=== PATIENT | female | born 1990 | race Caucasian/White ===

== ENCOUNTER → 2025-01-02 | Outpatient (CLI) | payer OTHER, SELFPAY ==
[2025-01-02 16:28] LABS: Hematocrit 40.9 % (37-47); Hemoglobin 14.0 g/dL (12.0-15.0); Immature Granulocytes Count 0.030 X10^3/uL (0.0-0.0); Mean Corp Hgb Conc 34.2 g/dL (32-36); Mean Corpuscular Volume 84.2 fL (81-99); Mean Platelet Vol. 11.2 fl (6.2-12.0); NRBC Flagged by Analyzer 0 % (0-5); Platelet Count 328 K/mm3 (150-450); RBC Distribution Width CV 12.4 % (11.6-14.6); RBC Distribution Width SD 37.4 fl (35.1-43.9); Red Blood Count 4.86 M/mm3 (4.2-5.4); White Blood Count 7.4 K/mm3 (4.4-11.0)
[2025-01-02 18:01] LABS: AST(SGOT) 19 U/L (<=31); Alanine Aminotransfer ALT/SGPT 23 U/L (<=34); Albumin, Serum 4.5 g/dL (3.5-5.0); Alkaline Phosphatase 76 U/L (35-104); Anion Gap 16 (5-15); BUN 10 mg/dL (4-19); BUN/Creat Ratio 14.7 RATIO (10-20); Calcium,Total 9.8 mg/dL (7.6-11.0); Carbon Dioxide 19.6 mmol/L (21.0-32.0); Chloride 102 mmol/L (98-108); Cholesterol 166 mg/dL (<=200); Globulin 2.9 g/dL (2.2-4.2); Glucose 89 mg/dL (70-99); Low Density Lipoprotein Calc. 90 mg/dL; Potassium 3.8 mmol/L (3.3-5.1); Triglycerides 72 mg/dL; Very Low Density Lipoprotein 14 mg/dL (5-40); cholesterol:hdl ratio screen 2.71
== END | disposition home or self-care (01) ==
LOC: BIMLAB 14:37
PROVIDERS: PCP Internal Medicine; Referring Provider Internal Medicine; Visit Provider Internal Medicine
DX: Z00.00 Encounter for general adult medical examination without abnormal findings (principal); Z13.6 Encounter for screening for cardiovascular disorders; E04.1 Nontoxic single thyroid nodule
CPT/HCPCS: 36415; 80053; 80061; 84443; 85025

== ENCOUNTER → 2025-01-06 | Outpatient (CLI) | payer OTHER, SELFPAY ==
--- NOTE | 2025-01-06 10:02 | US_ITS ---
PROCEDURE: THYROID 01/06/2025 REASON FOR EXAM: THYROID NODULE TECHNIQUE: THYROID COMPARISON: None FINDINGS: Right thyroid lobe size: 4.8 cm 1.6 cm 1.6 cm Left thyroid lobe size: 4.8 cm x 1.7 cm 1.8 cm Isthmus: 0.3 cm Background parenchymal echotexture is heterogeneous Nodules: No thyroid nodule is seen. US/Thyroid IMPRESSION: Heterogeneous echotexture of both lobes of the thyroid. No focal nodule is see n. RECOMMENDATION: Based on most suspicious nodule. Nodule size = largest diameter Only evaluate nodule if =>5 mm. Growth > 20% in 2 dimensions = worsening. Follow up to 4 nodules. Recommend biopsy for no more than 2 nodules. Reading Location: [place] [id number]
--- OUTSIDE RECORDS SUMMARY | 2025-01-06 10:12 | XMS RPT_ITS | CCD ---
Author Organization [facility] Care Team Providers Care 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 Name Role Phone Hemalatha Nieves Primary Care Provider JOANNE ROBISON Primary Care Unavailable NADEEN BREWER Attending Unavailable PROVIDER, UNKNOWN Admitting Unavailable Joanne Robison MD Primary Care Provider Jose HUDDLESTON, Donita Miramontes Primary Care Provider Jose HUDDLESTON, Donita Miramontes Primary Care Provider Jose HUDDLESTON, Donita Miramontes Primary Care Provider [phone] JANNET GARCIA Attending Unavailable JOSE, DONITA Primary Care Unavailable LAURA GARCIAA Primary Care Unavailable DESIRE CHRISTY Attending Unavailable DONITA GARCIA Attending Unavailable JOSE DONITA Primary Care Unavailable Braxton Ramírez Attending Unavailable Braxton Ramírez Attending Unavailable Radu HUDDLESTON, Dr. Roberts Attending Provider Dr. Alejandra Lovelace MD Primary Care Provider [phone] Dr. Alejandra Lovelace MD Referring Provider Allergies Allergy Classification Reported Allergen(s) Allergy Type Date of Onset Reaction(s) Facility (2 sources) Penicillins; Translations: [PENICILLINS] Propensity to adverse reactions to drug 01-04-20 14 [facility] [place] ([facility] sources) Shellfish; Translations: [Shellfish Allergy] Propensity to adverse reactions to drug 08-03-19 20 Anaphylaxis, Hives, Rash [place], [place] (10 sources) Penicillins Propensity to adverse reactions to drug 01-04-20 14 Hives, Anaphylaxis [facility] Work Phone: (7 sources) Shellfish-Deriv ed Products Drug Intolerance 08-03-19 20 Anaphylaxis, Hives, Itching, Rash, Swelling [facility] (1 source) Penicillins Drug allergy (disorder) 11-07-19 [facility] Repository (1 source) No Known Latex Allergy Drug allergy (disorder) 11-07-19 [facility] Repository (1 source) Penicillins Allergy to substance 01-03-20 Anaphylaxis [facility] (1 source) Shellfish Allergy to substance 01-03-20 Anaphylaxis [facility] Medications Current Medications Medication Drug Class(es) Dates Sig (Normalized) Sig (Original) desogestrel 0.15 mg / ethinyl estradiol 0.03 mg oral tablet (3 sources) Progestin, Estrogen Start: 07-10-2015 desogestrel-ethin yl estradiol (DESOGEN) 0.15-30 MG-MCG tablet Take 1 Tablet by mouth daily. 3 Package 4 07/10/2015 Active Ethinyl Estradiol / Ferrous fumarate / Norethindrone (1 source) Estrogen Start: 09-11-2014 norethindrone-eth inyl estradiol (JUNEL FE 06/19) 1-20 MG-MCG tablet Take 1 Tab by mouth daily. 1 Package 12 09/11/2014 Active MULTIPLE VITAMINS PO (6 sources) take 1 tablet by mouth in the morning MULTIPLE VITAMINS PO Take 1 tablet by mouth in the morning. Active take 1 tablet by mouth in the mo rning MULTIPLE VITAMINS PO Take 1 tablet by mouth in the morning. 0 Active Multiple Vitamins-Minerals (MULTIVITAL ORAL) (3 sources) take 1 tablet by mouth once daily Multiple Vitamins-Minerals (MULTIVITAL ORAL) Take 1 Tab by mouth daily. Active take 1 tablet by mouth once flor y Multiple Vitamins-Minerals (MULTIVITAL ORAL) Take 1 Tab by mouth daily. 0 Active Qm-Cy-Kirp-Fa-Ca Carb-Vit K (Women's Multivitamin) 18 mg-400 mcg- 500 mg-50 mcg tablet (1 source) Start: 09-05-2024 Cz-Ry-Tgbr-Fa- Ca Carb-Vit K (Women's Multivitamin) 18 mg-400 mcg- 500 mg-50 mcg tablet Active {tbl} PO September 05, 2024 12:00am Completed/Discontinued Medications Medication Drug Class(es) Dates Sig (Normalized) Sig (Original) 1 ml dexamethasone phosphate 4 mg/ml injection (4 sources) Corticosteroid Start: 05-13-2023 End: 05-13-2023 dexAMETHasone (Decadron) injection 10 mg ethinyl estradiol 0.035 mg / norgestimate 0.25 mg oral tablet (2 sources) Progestin, Estrogen Start: 08-03-2022 End: 12-10-2022 take 1 tablet by mouth once daily Sprintec 28 0.25-35 MG-MCG tablet Take 1 tablet by mouth daily. 0 08/03/2022 12/10/2022 Discontinued (Therapy completed) Start: 07-17-2019 take 1 tablet by clif th once daily norgestimate-ethinyl estradiol (SPRINTEC 28) 0.25-35 MG-MCG per tablet Take 1 tablet by mouth daily 1 packet 3 07/17/2019 Active fluticasone propionate 0.05 mg/actuat metered dose nasal spray (3 sources) Corticosteroid Start: 05-13-2023 End: 12-01-2023 take 1 spray(s) nasal route once daily fluticasone (Flonase Allergy Relief) 50 MCG/ACT nasal spray Indications: Middle ear effusion, bilateral Administer 1 spray into each nostril daily. Shake gently. Before first use, prime pump. After use, clean tip and replace cap. 16 g 05/13/2023 12/01/2023 Discontinued (Therapy completed) Problems Active Problems Problem Classification Problem Date Documented Da te Episodic/Chronic Administrative/social admission (1 source) First encounter by subject; Translations: [Persons encountering health services in other specified circumstances] 01-02-2025 Episodic Allergic reactions (1 source) Allergy status to penicillin; Translations: [ALLERGY STATUS TO PENICILLIN] Onset: 11-08-2024 Episodic Contraceptive and procreative management (1 source) Patient encounter status; Translations: [Encounter for fertility testing] 12-01-2023 Episodic Disorders of lipid metabolism (11 sources) Hyperlipidemia; Translations: [Hyperlipidemia, unspecified] Onset: 08-15-2019 03-13-2022 Chronic Endometriosis (2 sources) Endometriosis; Translations: [ENDOMETRIOSIS OF THE POSTERIOR CUL-DE-SAC, UNSPECI] Onset: 11-08-2024 Malaise and fatigue (1 source) Fatigue; Translations: [Other fatigue] Episodic Menstrual disorders (1 source) Dysmenorrhea, unspecified; Translations: [DYSMENORRHEA, UNSPECIFIED] Onset: 09-29-2024 Chronic Other endocrine disorders (1 source) Hormone level - finding; Translations: [Endocrine disorder, unspecified] 01-02-2025 Episodic Comment on above: progesterone Other screening for suspected conditions (not mental disorders or infectious disease) (7 sources) Finding of thyroid gland; Translations: [Abnormal findings on diagnostic imaging of other specified body structures] Onset: 10-27-2019 03-13-2022 Chronic Other screening for suspected conditions (not mental disorders or infectious disease) (15 sources) Viral screening status; Translations: [Thyroid hormone tests abnormal] Onset: 10-27-2019 03-13-2022 Episodic Residual codes; unclassified (1 source) Hepatitis B screening required; Translations: [Need for hepatitis B screening test] Thyroid disorders (8 sources) Goiter; Translations: [Thyroid nodule] Onset: 10-27-2019 03-13-2022 Chronic Unclassified (5 sources) Patient encounter status; Translations: [Routine screening for STI (sexually transmitted infection)] Past or Other Problems Problem Classification Problem Date Documented Date Episodic/Chronic Other skin disorders (7 sources) Mass of neck; Translations: [Localized swelling, mass and lump, neck] Onset: 10-27-2019 03-13-2022 Episodic Other upper respiratory infections (6 sources) Sore throat symptom; Translations: [Acute pharyngitis, unspecified] Onset: 05-13-2023 05-13-2023 Episodic Otitis media and related conditions (4 sources) Finding of fluid behind tympanic membrane; Translations: [Unspecified nonsuppurative otitis media, bilateral] Onset: 05-13-2023 05-13-2023 Episodic Results Test Name Value Interpretation Reference Range Facility UROGENITAL UREA/MYCO PCRon 0 11-12-2024 MYCOPLASMA GENITALIUM Not detected Normal () [facility] Comment on above: Order Comment: Test results should be interpreted with caution. Assay was performed at client's request on a sub-optimal specimen. Result Comment: The specimen submitted for testing did not meet ARUP submission guidelines. Testing was performed on a specimen that did not meet validated specimen type requirements. Performance characteristics of this assay may be affected. Interpret results with caution. Please refer to the [facility] Test Directory for information on specimen acceptability: [email or web address] INTERPRETIVE INFORMATION: Urogenital Ureaplasma and Mycoplasma Species by PCR A negative result does not rule out the presence of PCR inhibitors in the patient specimen or test-specific nucleic acid in concentrations below the level of detection by this test. This test was developed and its performance characteristics determined by [facility]. It has not been cleared or approved by the US Food and Drug Administration. This test was performed in a CLIA certified laboratory and is intended for clinical purposes. Performed By: [facility] [address] [place] [address] Egg Setter: Amrit Fung MD, PhD CLIA Number: [id number] Performed By: #### U R MYCOPCR #### [address] [address] MYCOPLASMA HOMINIS Not detected Normal () [facility] Comment on above: Order Comment: Test results should be interpreted with caution. Assay was performed at client's request on a sub-optimal specimen. Result Comment: The specimen submitted for testing did not meet ARUP submission guidelines. Testing was performed on a specimen that did not meet validated specimen type requirements. Performance characteristics of this assay may be affected. Interpret results with caution. Please refer to the [email or web address] Test Directory for information on specimen acceptability: [email or web address] Performed By: #### U R MYCOPCR #### [facility] [address] [place] [address] UREAPLASMA PARVUM Detected Abnormal () [facility] Comment on above: Order Comment: Test results should be interpreted with caution. Assay was performed at client's request on a sub-optimal specimen. Result Comment: The specimen submitted for testing did not meet ARUP submission guidelines. Testing was performed on a specimen that did not meet validated specimen type requirements. Performance characteristics of this assay may be affected. Interpret results with caution. Please refer to the [email or web address] Test Directory for information on specimen acceptability: [email or web address] Performed By: #### U R MYCOPCR #### [facility] [address] [place] [address] UREAPLASMA UREALYTICUM Not detected Normal () [facility] Comment on above: Order Comment: Test results should be interpreted with caution. Assay was performed at client's request on a sub-optimal specimen. Result Comment: The specimen submitted for testing did not meet HIUP submission guidelines. Testing was performed on a specimen that did not meet validated specimen type requirements. Performance characteristics of this assay may be affected. Interpret results with caution. Please refer to the [facility] Test Directory for information on specimen acceptability: [email or web address] Performed By: #### U R MYCOPCR #### [facility] [address] [place], [place] [id number] UREAPLASMA/MYCOPL ASMA SOURCE endometrial Normal () [facility] Comment on above: Order Comment: Test results should be interpreted with caution. Assay was performed at client's request on a sub-optimal specimen. Performed By: #### U R MYCOPCR #### [facility] [address] [place], [place] [id number] *SALPINGOGRAM-OTHER MDwilber *SALPINGOGRAM-OTH ER Name: REGINA SANABRIA Phys: Braxton Ramírez MD : 1990 Age: 34 Sex: F Acct: [id number] Loc: [facility] Exam Date: 11/08/2024 Status: [facility] Radiology No: Unit No: [id number] PH: [phone] Diagnosis: DYSMENORRHEA EXAM: [id number] *SALPINGOGRAM-OTHER Reason For Procedure: HYSTERSALPINGOGRAM PRIMARY REPORT DICTATED AND SIGNED BY DR. RAMÍREZ IN PCI STUDY: FLUOROSCOPY Intraprocedural fluoroscopy provided to Dr. Ramírez For further details, please see procedural report in PCI. IMPRESSION: INTRAPROCEDURAL FLUOROSCOPY. ---- Reported By: CC: Technologist: MARGIE LAWSON Transcribed Date/Time: 11/09/2024 (717) Hospitality Workers: SHARMILA Printed Date/Time: 11/09/2024 (717) PAGE 1 Signed Report Normal [facility] IPPNon 11-08-[address] [id number] [place] [id number] REGINA SANABRIA DR: Braxton Ramírez MD ATT DR: Braxton Ramírez MD MR [id number] IMMEDIATE POST-OP REPORT ADMIT DATE: Immediate Post-Op Prog. Note Date of Procedure: 11/08/24 Time: Sho Surgeon(s): Jake Sorter/Assay Tech(s): JOHN Root Anesthesia: General Pre-Operative Diagnosis: Dysmenorrhea Post-operative diagnosis: endometriosis Procedure(s) Performed: Diagnostic laparoscopy, hysteroscopy, D and C, selective HSG Findings: endometriosis Specimen(s) removed or altered: endometrial curettings Estimated blood loss: Less than 20 cc Impln/grft/tiss/dev implntd: None Patient's condition: Stable Complications: none [facility] Braxton aRmírez MD Signed Electronically 11/08/24 1029 cc: SURGERY RECORD Normal [facility] MISC AEROBIC CULTUREon 11-08 MISC AEROBIC CULTURE RUN DATE: 11/10/24 Laboratory LIVE PAGE 1 RUN TIME: 1128 Specimen Inquiry RUN USER: INTERFACE [facility] Department of Laboratories [address] [place] [address] PATIENT: REGINA SANABRIA LOC: MATTI U #: [id number] HOME PHONE: AGE/SX: 34/F ROOM: RE11/08/[address] [facility] [address]: Braxton Ramírez MD : [birth year] BED: DIS: STATUS: REG [facility] LAB O/S: Specimen: [id number] Collected: 11/08/24- Status: COMP Req#: [id number] Received: 11/08/24 Source: TISSUE Sp Desc: ENDOMETRIM Subm Dr: Braxton Ramírez MD Ordered: AEROBIC CULTURE Procedure Result Verified > MISC AEROBIC CULTURE Final 11/10/24-1128 LIGHT LACTOBACILLUS SPECIES END OF REPORT Normal [facility] Comment on above: Performed By: #### C CHUCHO #### [place] [address] ORR 11-08-2024 [place] [address] [id number] REGINA SANABRIA DICT DR: Braxton Ramírez MD ATT DR: Braxton Ramírez MD MR [id number] SURGERY RECORD ADMIT DATE: DATE OF SURGERY: 11/08/2024 PREOPERATIVE DIAGNOSIS: Dysmenorrhea. POSTOPERATIVE DIAGNOSIS: Endometriosis. OPERATION/PROCEDURE: Diagnostic laparoscopy, hysteroscopy, dilatation and curettage, selective hysterosalpingogram. SURGEON: Braxton Ramírez MD. ANESTHESIA: General. STATUARY PAINTER: JOHN Purcell. FINDINGS: Endometriosis in the posterior cul-de-sac and the left pelvic sidewall coursing along the ureter as well. Normal endometrial cavity for the most part and patent fallopian tubes bilaterally. SPECIMEN: Endometrial curettings sent to pathology. ESTIMATED BLOOD LOSS: Minimal. COMPLICATIONS: None. CONDITION AT END OF OPERATION: Stable to recovery room. DETAILS OF PROCEDURE: The patient was taken to the operating room where general anesthesia was administered and found to be adequate. The patient was then prepped and draped in the normal sterile fashion with legs in the Yellofin stirrups in the dorsal lithotomy position. Weighted speculum was placed in the posterior vagina, Wilmer in the anterior vagina. The anterior lip of the cervix was grasped with a single-tooth tenaculum. Cervix was then gently dilated using Jacky dilators. Endometrial and endocervical cultures then obtained. The vagina was then douched with Betadine. A Rigoberto- Tobin catheter was then inserted to the left cornual angle. Dye was injected and seen to be coursing down the entire length of the fallopian tube with spill into the peritoneal cavity. The catheter was moved over to the right cornual angle. Once again, dye was injected and seen to be coursing down the entire length of fallopian tube with spill into the peritoneal cavity with normal pressures noted. The catheter was removed and a hysteroscope was inserted to visualize the interior of the uterus. Uterus had a normal architecture and appearance. There was no obvious pathology found anywhere. We then removed the hysteroscope and a gentle [place], [place] [address] [id number] REGINA SANABRIA DICT DR: Braxton Ramírez MD ATT DR: Braxton Ramírez MD MR [id number] SURGERY RECORD ADMIT DATE: circumferential curettage was performed yielding decent tissue. The uterus then sounded to 7.5 cm. A size 6 ANDREI manipulator was placed in the 1uterus. The balloon was inflated. Tenaculum and weighted speculum were both removed. Lynn was placed in the bladder. Gloves were changed. Attention was turned to the abdomen. A stab incision was made in the umbilicus. Using a Veress needle, the abdomen was entered. Three clicks were heard. Drop test was performed and passed. The gas was hooked up. The abdomen was insufflated to a pressure of 15 mmHg. We then entered at the umbilicus with a 5 mm Optiview trocar and a laparoscope. Intraperitoneal entry was confirmed with the camera and the gas was hooked up to the trocar. No visceral injury was noted from the Veress needle. We then placed a second suprapubic trocar, also 5 mm for additional instruments during the case. The patient was placed in steep Trendelenburg and the bowel was moved out of the pelvis. Survey of the pelvis revealed endometriosis in the posterior cul-de-sac and then several powder burn lesions on the left posterior broad ligament, left utero-ovarian ligament, and also powder burn and white flare lesions with fibrosis right along the left ureter. There was no other disease found anywhere else in the pelvis. The decision was made to bring the patient back for a robotic surgery to remove these various areas of disease at a later date. Some lactated Ringer's was left in the pelvis at the end the procedure postoperatively. At that point, the procedure was complete. The instruments were removed. The abdomen was desufflated. Trocars were removed. The trocar sites were closed with 4-0 Vicryl and Dermabond, injected with 0.25 percent Marcaine with epi. Patient was cleaned. Drapes were taken down. She was taken out of the [facility], awakened from anesthesia without difficulty, extubated, and transferred to recovery room in stable condition. REGINA SANABRIA - /FN/ak DOC#: [id number]/JOB#: [id number] [place], [place] [address] [id number] REGINA SANABRIA DICT DR: Braxton Ramírez MD ATT DR: Braxton Ramírez MD MR [id number] SURGERY RECORD ADMIT DATE: (more content not included)... Normal [facility] POC URINE PREGNANCYon 2024 Beta HCG ( test) Ql (U) Negative Normal [facility] Comment on above: Performed By: #### P OCUPREG #### POC [facility] Point of Care Testing [address] [place] [address] SURGICAL PATHOLOGYon 025 SURGICAL PATHOLOGY RUN DATE: 11/09/24 Laboratory LIVE PAGE 1 RUN TIME: 1459 Specimen Inquiry RUN USER: INTERFACE [facility] Department of Laboratories [address] [place] [id number] PATIENT: REGINA SANABRIA LOC: [facility] U #: [id number] HOME PHONE: AGE/SX: 34/F ROOM: RE11/08/[address] [facility] [address]: Braxton Ramírez MD : [birth year] BED: DIS: STATUS: REG [facility] LAB O/S: Specimen : [id number] Date Collected: 11/08/24 Surgeon : Braxton Ramírez MD Date Received : 11/08/24 Date Reported : 11/09/24 Physician : None == FINAL DIAGNOSIS ENDOMETRIUM; CURETTINGS: UNREMARKABLE SECRETORY PHASE ENDOMETRIUM, NEGATIVE FOR CHRONIC ENDOMETRITIS. ___ Mannie Moore M.D. Pathologist 11/09/24 SPECIMEN: Endometrial Curettings, Check for Chronic Endometritis PRE POST OP Dx (Clinical Dx): Dysmenorrhea O.R. PROCEDURE: Diagnostic Laparoscopy, Possible Laser for Endometriosis, Hysteroscopy with Dilatation and Curettage, Selective Hysterosalpingogram GROSS EXAMINATION: Specimen is labeled as endometrial curettings, check for chronic endometritis. Received in formalin are multiple fragments of white-moore to brown-moore tissue measuring 1.8 x 0.6 x 0.5 cm in aggregate. The specimen is entirely submitted in one cassette for microscopic examination. ML/cyrus COMMENT: Unless otherwise specified, final diagnosis is based on microscopic examination of the specimen. CONTINUED ON NEXT PAGE RUN DATE: 11/09/24 Laboratory LIVE PAGE 2 RUN TIME: 1459 Specimen Inquiry RUN USER: INTERFACE SPEC #: [id number] PATIENT: REGINA SANABRIA #[id number] (Continued) Specimen : [id number] Date Collected: 11/08/24 Surgeon : Braxton Ramírez MD Date Received : 11/08/24 Date Reported : 11/09/24 Physician : None == Signed-Out: Mannie Moore (signature on file) 11/09/24 My electronic signature is attestation that I have personally reviewed the submitted material(s) and the final report reflects that evaluation. END OF REPORT Normal [facility] Comment on above: Performed By: #### S #### [facility] [address] [address] PELVIC SONO TRANSVAGINALon 0 09-29-2024 PELVIC SONO TRANSVAGINAL Name: REGINA SANABRIA Phys: Braxton Ramírez MD : 1990 Age: 34 Sex: F Acct: [id number] Loc: [facility] Exam Date: 09/29/2024 Status: REG REF Radiology No: Unit No: [id number] PH: [phone] Diagnosis: DYSMENORRHEA EXAM: [id number] PELVIC SONO TRANSVAGINAL Reason For Procedure: DYSMENORRHEA STUDY: PELVIC SONO TRANSVAGINAL CLINICAL INDICATION: Dysmenorrhea. TECHNIQUE: Transvaginal sonography of the pelvis. COMPARISON: None. FINDINGS: The uterus measures 5.1 x 3.0 x 4.0 cm. The endometrium measures 9 mm. The right ovary measures 2.6 x 1.9 x 1.6 cm. Positive Doppler flow right ovary The left ovary measures 1.4 x 2.0 x 1.8cm. Positive Doppler flow left ovary no free fluid in cul-de-sac. No abnormal adnexal masses are seen IMPRESSION: NO ACUTE PROCESS Site: O REPORT SIGNED IN OTHER VENDOR SYSTEM 09/29/2024 Reported By: Akash Saxena MD CC: Donita Garcia Technologist: SHAYNE GUTIÉRREZ RDMS/(Sana) Transcribed Date/Time: 09/29/2024 (1513) Hospitality Workers: CLAY Printed Date/Time: 09/29/2024 (2093) PAGE 1 Signed Report Normal [facility] 36on 01-20-2024 36 LM for return call. Normal [facility] 36 ----- Message from Tato Garcia MD sent at 01/19/2024 1:15 PM EDT ----- Let pt know her partner's semen analysis was normal Next step is the HSG Normal [facility] 36on 01-03-2024 36 Name of caller: Omar ashford Contact phone number: [phone] Relationship to Patient: patient Provider: Dr. Jannet Garcia Practice: [place] Chief Complaint/Reason for Call: Patient calling to schedule her [place] Hysterosalpingogram. Patient stated that the first day of cycle was on 01/01/24. Please advise. Best time of day caller can be reached: Any Patient advised that office/PCP has 24-48 business hours to return their call: No Normal [facility] Office Visiton 12-16-2023 Follow-up visit [id number] Mart Sanabria 1990 F Date Provider Department Center 12/16/2023 [id number] GARCIA [facility] Family History Problem Relation Age of Onset Cervical cancer Sister 31 Hypertension Father Arthritis Father Other Mother Comments: hysterectomy- benign tumor Hypothyroidism Mother Hypertension Mother Breast cancer Maternal Great-Grandmother Hyperthyroidism Maternal Grandmother Cancer Maternal Grandfather Comments: Melanoma COPD Maternal Grandfather Thyroid cancer Neg Hx Family Status - Relation Status Age at Sister Alive Father Alive Mother Alive Maternal Great-Grandmother Maternal Grandmother Alive Maternal Grandfather Neg Hx Level of Service:91159 [place] PERIODIC PREVENTIVE MED EST PATIENT 18-39 YRS Reason for Visit and Comments: Annual Exam [83] - Patient here today for annual physical exam. No refills needed. Normal [facility] Progress Noteon 12-16-2023 Progress Note Chronic, unknown Check the labs Is trying to conceive Would not use a statin if high Normal [facility] Progress Note Chronic, unknown Check the labs No longer going to endo Normal [facility] Progress Note Subjective Patient ID: Regina Sanabria is a 33 y.o. female who presents for Annual Exam (Patient here today for annual physical exam. No refills needed.). Saw the [facility]. Is going to have an HSPG. Trying to conceive. Is off the pill. They did not do labs. On no medicines. BP is good. Weight is good. Chart reivewed Review of Systems Constitutional: Negative for activity change and appetite change. Weights and rower, and walking Respiratory: Negative for chest tightness and shortness of breath. Cardiovascular: Negative for chest pain and leg swelling. Gastrointestinal: Positive for constipation. Negative for abdominal pain and blood in stool. Genitourinary: Negative for difficulty urinating, menstrual problem and vaginal discharge. Less flow with menses Objective Physical Exam Vitals and nursing note reviewed. Constitutional: General: She is not in acute distress. Appearance: She is not ill-appearing or toxic-appearing. HENT: Right Ear: Tympanic membrane normal. Left Ear: Tympanic membrane normal. Nose: Nose normal. Mouth/Throat: Pharynx: No oropharyngeal exudate or posterior oropharyngeal erythema. Eyes: General: No scleral icterus. Conjunctiva/sclera: Conjunctivae normal. Pupils: Pupils are equal, round, and reactive to light. Neck: Vascular: No carotid bruit. Cardiovascular: Rate and Rhythm: Normal rate and regular rhythm. Heart sounds: Normal heart sounds. No murmur heard. Pulmonary: Effort: Pulmonary effort is normal. No respiratory distress. Breath sounds: Normal breath sounds. Abdominal: General: Bowel sounds are normal. There is no distension. Tenderness: There is no abdominal tenderness. There is no right CVA tenderness or left CVA tenderness. Musculoskeletal: Cervical back: Neck supple. Lymphadenopathy: Cervical: No cervical adenopathy. Skin: General: Skin is warm and dry. Capillary Refill: Capillary refill takes less than 2 seconds. Coloration: Skin is not jaundiced. Neurological: Mental Status: She is alert and oriented to person, place, and time. Cranial Nerves: No cranial nerve deficit. Psychiatric: Thought Content: Thought content normal. Assessment/Plan Problem List Items Addressed This Visit Abnormal TSH Chronic, unknown Check the labs No longer going to endo Relevant Orders TSH Hyperlipemia Chronic, unknown Check the labs Is trying to conceive Would not use a statin if high Other Visit Diagnoses Routine adult health maintenance - Primary Relevant Orders Lipid panel Comprehensive metabolic panel CBC Normal [facility] Office Visiton 12-01-2023 Follow-up visit [id number] Mart Sanabria 1990 F Date Provider Department Center 12/01/2023 [id number] GARCIA [facility] [place] Family History Problem Relation Age of Onset Cervical cancer Sister 31 Hypertension Father Arthritis Father Other Mother Comments: hysterectomy- benign tumor Hypothyroidism Mother Hypertension Mother Breast cancer Maternal Great-Grandmother Hyperthyroidism Maternal Grandmother Cancer Maternal Grandfather Comments: Melanoma COPD Maternal Grandfather Thyroid cancer Neg Hx Family Status - Relation Status Age at Sister Alive Father Alive Mother Alive Maternal Great-Grandmother Maternal Grandmother Alive Maternal Grandfather Neg Hx Level of Service:48496 [place] PERIODIC PREVENTIVE MED EST PATIENT 18-39 YRS Reason for Visit and Comments: Gynecologic Exam [50] [facility] Progress Noteon 12-01-2023 Progress Note Regina Sanabria 12/01/2023 33 y.o. Primary Care Physician: Donita Garcia MD Chief Complaint Patient presents with Gynecologic Exam HPI : Regina Sanabria is a 33 y.o. female here for annual exam. Gynecologic History: Patient's last menstrual period was 11/10/2023. Menses are regular. Menses occur every regular every 28-30 days. Flow is 3 days long, moderate flow Intermenstrual bleeding: no Dysmenorrhea:moderate, occurring throughout menses and getting worse over the years Sexually Active: Yes Dyspareunia: No Contraception: no method Preventative Health Testing: Date of Last Pap Smear: neg pap and HPV in 08/2021 Abnormal Pap Smear History: ASCUS with +other HPV in 2020 with neg colpo OB History Para Term AB Living 0 0 0 0 0 0 SAB IAB Ectopic Multiple Live Births 0 0 0 0 0 Past Medical History: Diagnosis Date Abnormal Pap smear of cervix 07/2020 ASCUS +other HPV, neg colpo Hyperlipemia History reviewed. No pertinent surgical history. Family History Problem Relation Name Age of Onset Cervical cancer Sister 31 Hypertension Father Father Arthritis Father Father Other ([id number]) Mother Mother hysterectomy- benign tumor Hypothyroidism Mother Mother Hypertension Mother Mother Breast cancer Maternal Great-Grandmother Hyperthyroidism Maternal Grandmother Cancer Maternal Grandfather Grandpa Melanoma COPD Maternal Grandfather Grandpa Thyroid cancer Neg Hx MEDICATIONS: Current Outpatient Medications Medication Sig Dispense Refill MULTIPLE VITAMINS PO Take 1 tablet by mouth in the morning. No current facility-administered medications for this visit. ALLERGIES: Allergies as of 12/01/2023 - Reviewed 12/01/2023 Allergen Reaction Noted Penicillins Anaphylaxis and Hives 01/03/2014 Shellfish-derived products Anaphylaxis, Hives, Itching, Rash, and Swelling 08/03/2019 REVIEW OF SYSTEMS: CONSTIUTIONAL: No weight change or fatigue. No fever or chills. No changes in appetite. CV: No chest pain, palpitations, or syncope. RESPIRATORY: No SOB, cough, or wheezing. BREAST: No breast abnormalities or lumps. GI: No nausea, vomiting, diarrhea, constipation, bloating or bowel changes. No blood or mucous with bowel movements or melena. : No dysuria, frequency, hesitancy, urgency. No urinary incontinence. No vaginal discharge, odor, or itch. No dyspareunia. NEURO: No weakness or sensory changes MUSCULOSKELETAL: No back pain or arthralgias. HEME and LYMPH : No lymphoma or abnormal bleeding history PHYSICAL EXAM: Vitals: 12/01/23 1522 BP: 126/84 Weight: 212 lb (96.2 kg) Height: 5' 8 (1.727 m) Body mass index is 32.23 kg/m?. 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 nontender BLADDER: non tender PELVIC SUPPORT DEFECTS: normal support of vagina, uterus, and bladder ANUS/PERINEUM: no hemorrhoids, masses or warts noted ASSESSMENT/PLAN: Regina was seen today for gynecologic exam. Diagnoses and all orders for this visit: Encounter for gynecological examination with abnormal finding (Primary) Screening for cervical cancer - Pap Smear Fertility testing - [place] HYSTEROSALPINGOGRAM; Future Follow up in about 1 year (around 11/30/2024) for annual. Discussed fertility testing, since greater then a year of trying and she is ovulation and timing intercourse without success, I would recommend HSG to look at tubal patency and semen analysis. Kit for semen analysis given to patient today and she will call the office on first day of period to schedule HSG appropriately in the cycle after bleeding, but before ovulation. Discussed pap guidelines and routine gynecologic preventative care/screening. Self breast exam discussed. Weight management through healthy diet and regular exercise reviewed. Advised use of MVI and vit D supplementation, calcium through diet if able. Routine health maintenance per patient's PCP as well. Jannet Garcia M.D. 12/01/2023 at 4:11 PM (Electronically Signed) Normal [facility] No Panel Informationon 05-13 Interpretation and review of laboratory results Normal [facility] POC Strep DNA Probe Negative Negative [facility] Office Visiton 05-13-2023 Follow-up visit [id number] Mart Sanabria kizzy 1990 F Date Provider Department Center 05/13/2023 [id number] [facility] None Family History Problem Relation Age of Onset Cervical cancer Sister 31 Hypertension Father Arthritis Father Other Mother Comments: hysterectomy- benign tumor Hypothyroidism Mother Hypertension Mother Breast cancer Maternal Great-Grandmother Hyperthyroidism Maternal Grandmother Cancer Maternal Grandfather Comments: Melanoma COPD Maternal Grandfather Thyroid cancer Neg Hx Family Status - Relation Status Age at Sister Alive Father Alive Mother Alive Maternal Great-Grandmother Maternal Grandmother Alive Maternal Grandfather Neg Hx Level of Service:45394 [place] OFFICE/OUTPATIENT ESTABLISHED LOW MDM 20-29 MIN Reason for Visit and Comments: Sore Throat [82] - X 4 days, nasal congestion, right ear pain with some swelling-taking cold medicine Normal [facility] Progress Noteon 05-13-2023 Progress Note Subjective: Patient: Regina Sanabria is a 32 y.o. female Patient presents urgent care today with concerns for sore throat x 3 days and right ear pain today. Patient has been taking DayQuil and cough drops at home with little relief. Patient denies fever, chills, nausea, vomiting, diarrhea, shortness of breath, and chest pain. Patient able to speak in full complete sentences today in office and is able to manage secretions appropriately. Review of Systems Constitutional: Negative for chills, fatigue and fever. HENT: Positive for sore throat. Negative for congestion, ear discharge, ear pain, rhinorrhea, sinus pressure, sinus pain and trouble swallowing. Respiratory: Negative for cough, chest tightness, shortness of breath and wheezing. Cardiovascular: Negative for chest pain and palpitations. Gastrointestinal: Negative for diarrhea, nausea and vomiting. Neurological: Negative for dizziness, syncope, weakness, light-headedness and headaches. Allergies Allergen Reactions Penicillins Anaphylaxis and Hives Other reaction(s): Unknown Shellfish-Derived Products Anaphylaxis, Hives, Itching, Rash and Swelling Current Outpatient Medications on File Prior to Visit Medication Sig Dispense Refill MULTIPLE VITAMINS PO Take 1 tablet by mouth in the morning. No current facility-administered medications on file prior to visit. Past Medical History: Diagnosis Date Abnormal Pap smear of cervix 07/2020 ASCUS +other HPV, neg colpo Hyperlipemia Social History Tobacco Use Smoking status: Never Passive exposure: Never Smokeless tobacco: Never Substance Use Topics Alcohol use: Not Currently Objective: BP (!) 149/74 (BP Location: Right arm) Pulse 76 Temp 36.3 ?C (97.3 ?F) (Temporal) Ht 5' 8 (1.727 m) Wt 208 lb (94.3 kg) LMP 04/27/2023 SpO2 100% BMI 31.63 kg/m? Physical Exam Vitals and nursing note reviewed. Constitutional: General: She is not in acute distress. Appearance: Normal appearance. She is normal weight. She is not ill-appearing or toxic-appearing. HENT: Right Ear: A middle ear effusion is present. Tympanic membrane is not erythematous or bulging. Left Ear: A middle ear effusion is present. Tympanic membrane is not erythematous or bulging. Nose: Nose normal. Right Sinus: No maxillary sinus tenderness or frontal sinus tenderness. Left Sinus: No maxillary sinus tenderness or frontal sinus tenderness. Mouth/Throat: Mouth: Mucous membranes are moist. Pharynx: Oropharynx is clear. Uvula midline. Posterior oropharyngeal erythema present. No oropharyngeal exudate. Tonsils: No tonsillar exudate or tonsillar abscesses. 2+ on the right. 2+ on the left. Cardiovascular: Rate and Rhythm: Normal rate and regular rhythm. Pulmonary: Effort: Pulmonary effort is normal. Breath sounds: Normal breath sounds. Musculoskeletal: General: Normal range of motion. Skin: General: Skin is warm and dry. Neurological: General: No focal deficit present. Mental Status: She is alert and oriented to person, place, and time. Mental status is at baseline. Psychiatric: Mood and Affect: Mood normal. Behavior: Behavior normal. Behavior is cooperative. Thought Content: Thought content normal. Judgment: Judgment normal. Assessment 1. Viral pharyngitis 2. Sore throat 3. Middle ear effusion, bilateral Plan Diagnoses and all orders for this visit: Viral pharyngitis - dexAMETHasone (Decadron) injection 10 mg Sore throat - AMB POC STREP GO A DIRECT, DNA PROBE Middle ear effusion, bilateral - fluticasone (Flonase Allergy Relief) 50 MCG/ACT nasal spray; Administer 1 spray into each nostril daily. Shake gently. Before first use, prime pump. After use, clean tip and replace cap. Due to patient's symptoms and clinical evaluation a strep culture was performed in office. Strep culture negative. Patient given Decadron in office for sore throat relief. Patient prescribed Flonase from bilateral middle ear effusions. Educated patient on medications prescribed today in office and education provided in AVS. Recommended patient rest, increase p.o. fluid intake, utilize warm salt water gargles and throat lozenges at home for sore throat relief. Educated patient to follow-up with PCP for worsening or persistent symptoms. Patient understands and agreeable to treatment plan. Desire Christy NP 05/13/23 5:44 PM If symptoms do not improve, worsen, or new symptoms develop, see PCP for further evaluation. Normal [facility] Progress Note Administrations This Visit dexAMETHasone (Decadron) injection 10 mg Admin Date 05/13/2023 Action Given Dose 10 mg Route Oral Documented By An Valles [place] [facility] [id number] Lot [id number] Exp 05/30/24 Normal [facility] CT Soft Tissue Neck w/ Contr kalie 11-20-2019 CT Soft Tissue Neck w/ Contrast Patient Name: REGINA SANABRIA CT Exam Date/Time 11/16/2019 08:40:[address] Soft Tissue Neck w/ Contrast Ordering Physician DO CHU RYAN D Accession Number [id number] CPT4 Codes 32251 (), Q9967 (CT ISOVUE 370MG/[id number] Land1) Reason For Exam neck mass Report CT OF THE NECK SOFT TISSUES WITH IV CONTRAST CLINICAL INDICATION: neck mass TECHNIQUE: CT of the neck soft tissues with IV contrast. Multiplanar reformations. COMPARISON: Ultrasound from 08/09/2019 FINDINGS: Limited scans through the upper chest are unremarkable. Normal appearance of the larynx. Normal appearance of the epiglottis and aryepiglottic folds. Airway appears normal. No mucosal lesion identified. No pathologically enlarged lymph nodes. No abscess seen. Major salivary glands appear normal. Previous ultrasound is reviewed, and in the area of the previously described soft tissue mass, there is a very subtle, but smaller soft tissue lesion identified, best seen on image 57 of series 2. This measures approximately 8 x 5 mm in axial cross-section, and about 17 mm in craniocaudal dimension. Lymph node is favored, which is nonenlarged by CT criteria. Thyroid gland is heterogeneous. No discrete mass seen. IMPRESSION: 1. Soft tissue lesion seen on previous ultrasound considerably smaller, and probably a nonenlarged lymph node. Report Dictated on Final Dictated: 11/19/2019 11:10 pm Dictating Physician: MD PRESTON JOHN R Signed Date and Time: 11/19/2019 11:20 pm Signed by: MD PRESTON JOHN R Transcribed Date and Time: 11/19/2019 11:10 Normal [facility] C. Trachomatis / N. Gonorrho eae, DNA Probeon 08-09-2019 C. trachomatis DNA ROLAN+probe Ql (Genital specimen) NOT Detected Chlamydia trachomatis Nucleic Acid NOT Detected by DNA Amplification using the Cepheid System. Culture is the only recommended test in medical-legal cases such as suspected child abuse or molestation. [place], [place] N. gonorrhoeae DNA ROLAN+probe Ql (Unsp spec) NOT Detected Neisseria gonorrhoeae Nucleic Acid NOT Detected by DNA Amplification using the Cepheid System. Culture is the only recommended test in medical-legal cases such as suspected child abuse or molestation. [place], [place] Test Performed by [facility], [address] [place] [id number] Specimen Source Comment:Urine voided [place], [place] CBC Auto Differentialon 07-29 Absolute Baso # 0.0 10*3/uL 0 - 0.2 10*3/uL [place] Absolute Neut # 2.3 10*3/uL 1.8 - 7 10*3/uL [place] Basophils/100 WBC (Bld) 0.8 % 0 - 2 % [place] Eosinophils (Bld) [#/Vol] 0.1 10*3/uL 0 - 0.5 10*3/uL [place] Eosinophils/100 WBC (Bld) 2.0 % 1 - 6 % [place] Erythrocyte distribution width (RBC) [Ratio] 12.8 % 11.5 - 14.5 % [place] Granulocytes/100 WBC (Bld) 59.6 % 40 - 80 % [place] Hematocrit (Bld) [Volume fraction] 44.5 % 35 - 47 % [place] Hemoglobin (Bld) [Mass/Vol] 15.4 g/dL 11.7 - 16 g/dL [place] Lymphocytes (Bld) [#/Vol] 1.1 10*3/uL 1 - 4.3 10*3/uL [place] Lymphocytes/100 WBC (Bld) 28.6 % 20 - 40 % [place] MCH (RBC) [Entitic mass] 30.2 pg 26 - 34 pg [place] MCHC (RBC) [Mass/Vol] 34.5 % 32 - 36 % [place] MCV (RBC) [Entitic vol] 87.6 fL 79 - 98 fL [place] Monocytes (Bld) [#/Vol] 0.3 10*3/uL 0 - 0.8 10*3/uL [place] Monocytes/100 WBC (Bld) 9.0 % 2 - 10 % [place] Platelet mean volume (Bld) [Entitic vol] 9.7 fL 7.4 - 10.4 fL [place] Platelets (Bld) [#/Vol] 253 10*3/uL 140 - 440 10*3/uL [place] RBC (Bld) [#/Vol] 5.08 10*6/uL 3.8 - 5.2 10*6/uL [place] WBC (Bld) [#/Vol] 3.8 10*3/uL 3.6 - 10.7 10*3/uL [place] Test Performed by [facility], [address] [place] [address] [place] Chlamydia and GC PCR Panelon 08-09-2019 Chlamydia and GC PCR Panel Chlamydia trachomatis PCR --> Status: F NOT Detected Chlamydia trachomatis Nucleic Acid NOT Detected by DNA Amplification using the Cepheid System. Culture is the only recommended test in medical-legal cases such as suspected child abuse or molestation. Chlamydia trachomatis Nucleic Acid NOT Detected by DNA Amplification using the Cepheid System. Culture is the only recommended test in medical-legal cases such as suspected child abuse or molestation. Neisseria gonorrhoeae PCR --> Status: F NOT Detected Neisseria gonorrhoeae Nucleic Acid NOT Detected by DNA Amplification using the Cepheid System. Culture is the only recommended test in medical-legal cases such as suspected child abuse or molestation. Neisseria gonorrhoeae Nucleic Acid NOT Detected by DNA Amplification using the Cepheid System. Culture is the only recommended test in medical-legal cases such as suspected child abuse or molestation. Normal [facility] Comment on above: Order Comment: Speci men Source Comment:Urine voided Performed By: #### H EMDF, HA1C2, LIPD2, CMP3, FT4M, RPR, TSH5, B12, HEPC, HBSAG, HBSA, HIV4 #### [facility] [address] [place], [place] #### [id number] #### [facility] [address] [place] [address] Comp Metabolic Panelon 08-08 ALP [Catalytic activity/Vol] 46 U/L Normal 38-126 [facility] Comment on above: Performed By: #### H EMDF, HA1C2, LIPD2, CMP3, FT4M, RPR, TSH5, B12, HEPC, HBSAG, HBSA, HIV4 #### [facility] [address], [place] #### [id number] #### [facility] [address] [place] [address] ALT [Catalytic activity/Vol] 21 U/L Normal 13-69 [facility] Comment on above: Performed By: #### H EMDF, HA1C2, LIPD2, CMP3, FT4M, RPR, TSH5, B12, HEPC, HBSAG, HBSA, HIV4 #### [facility] [address], [place] #### [id number] #### [facility] [address] [place] [address] AST [Catalytic activity/Vol] 27 U/L Normal 15-46 [facility] Comment on above: Performed By: #### H EMDF, HA1C2, LIPD2, CMP3, FT4M, RPR, TSH5, B12, HEPC, HBSAG, HBSA, HIV4 #### [address] #### [id number] #### [facility] [address] [place] [address] Calcium [Mass/Vol] 9.6 mg/dL Normal 8.4-10.4 [facility] Comment on above: Performed By: #### H EMDF, HA1C2, LIPD2, CMP3, FT4M, RPR, TSH5, B12, HEPC, HBSAG, HBSA, HIV4 #### [address] #### [id number] #### [facility] [address] [place] [address] Glucose [Mass/Vol] 71 mg/dL Normal 70-100 [facility] Comment on above: Performed By: #### H EMDF, HA1C2, LIPD2, CMP3, FT4M, RPR, TSH5, B12, HEPC, HBSAG, HBSA, HIV4 #### [address] #### [id number] #### [facility] [address] [place] [address] Urea nitrogen [Mass/Vol] 15 mg/dL Normal 7-20 [facility] Comment on above: Performed By: #### H EMDF, HA1C2, LIPD2, CMP3, FT4M, RPR, TSH5, B12, HEPC, HBSAG, HBSA, HIV4 #### [address] #### [id number] #### [facility] [address] [place] [address] Anion gap [Moles/Vol] 11 Normal [facility] Comment on above: Performed By: #### H EMDF, HA1C2, LIPD2, CMP3, FT4M, RPR, TSH5, B12, HEPC, HBSAG, HBSA, HIV4 #### [address] #### [id number] #### [facility] [address] [place] [address] Bilirubin [Mass/Vol] 0.7 mg/dL Normal 0.2-1.3 [facility] Comment on above: Performed By: #### H EMDF, HA1C2, LIPD2, CMP3, FT4M, RPR, TSH5, B12, HEPC, HBSAG, HBSA, HIV4 #### [address] #### [id number] #### [facility] [address] [place] [address] CO2 [Moles/Vol] 24 mmol/L Normal 22-30 [facility] Comment on above: Performed By: #### H EMDF, HA1C2, LIPD2, CMP3, FT4M, RPR, TSH5, B12, HEPC, HBSAG, HBSA, HIV4 #### [address] #### [id number] #### [facility] [address] [place] [address] Creatinine [Mass/Vol] 0.88 mg/dL Normal 0.52-1.25 [facility] Comment on above: Performed By: #### H EMDF, HA1C2, LIPD2, CMP3, FT4M, RPR, TSH5, B12, HEPC, HBSAG, HBSA, HIV4 #### [address] #### [id number] #### [facility] [address] [place] [address] GFR/1.73 sq M predicted among blacks MDRD (S/P/Bld) [Vol rate/Area] mL/min/{1.73_m2} Normal >60 [facility] Comment on above: Performed By: #### H EMDF, HA1C2, LIPD2, CMP3, FT4M, RPR, TSH5, B12, HEPC, HBSAG, HBSA, HIV4 #### [address] #### [id number] #### [facility] [address] [place] [address] GFR/1.73 sq M predicted among non-blacks MDRD (S/P/Bld) [Vol rate/Area] mL/min/{1.73_m2} Normal >60 [facility] Comment on above: Result Comment: Sour ce- MDRD equation with creatinine calibration to IDMS(NKDEP) eGFR not recommended for drug dose adjustment Performed By: #### H EMDF, HA1C2, LIPD2, CMP3, FT4M, RPR, TSH5, B12, HEPC, HBSAG, HBSA, HIV4 #### [address] #### [id number] #### [facility] [address] [place] [address] Protein [Mass/Vol] 7.9 g/dL Normal 6.3-8.2 [facility] Comment on above: Performed By: #### H EMDF, HA1C2, LIPD2, CMP3, FT4M, RPR, TSH5, B12, HEPC, HBSAG, HBSA, HIV4 #### [address] #### [id number] #### [facility] [address] [place] [address] Chloride [Moles/Vol] 104 mmol/L Normal 98-107 [facility] Comment on above: Performed By: #### H EMDF, HA1C2, LIPD2, CMP3, FT4M, RPR, TSH5, B12, HEPC, HBSAG, HBSA, HIV4 #### [facility] [address], [place] #### [id number] #### [facility] [address] [place] [address] Potassium [Moles/Vol] 3.6 mmol/L Normal 3.5-5.1 [facility] Comment on above: Performed By: #### H EMDF, HA1C2, LIPD2, CMP3, FT4M, RPR, TSH5, B12, HEPC, HBSAG, HBSA, HIV4 #### [facility] [address], [place] #### [id number] #### [facility] [address] [place] [address] Sodium [Moles/Vol] 140 mmol/L Normal 135-145 [facility] Comment on above: Performed By: #### H EMDF, HA1C2, LIPD2, CMP3, FT4M, RPR, TSH5, B12, HEPC, HBSAG, HBSA, HIV4 #### [facility] [address], [place] #### [id number] #### [facility] [address] [place] [address] Albumin [Mass/Vol] 4.8 g/dL Normal 3.5-5.0 [facility] Comment on above: Performed By: #### H EMDF, HA1C2, LIPD2, CMP3, FT4M, RPR, TSH5, B12, HEPC, HBSAG, HBSA, HIV4 #### [facility] [address], [place] #### [id number] #### [facility] [address] [place] [address] Comprehensive Metabolic Pane so 08-09-2019 Albumin [Mass/Vol] 4.8 g/dL 3.5 - 5 g/dL [place] ALP [Catalytic activity/Vol] 46 U/L 38 - 126 U/L [place] ALT [Catalytic activity/Vol] 21 U/L 13 - 69 U/L [place] Anion gap [Moles/Vol] 11 mmol/L [place] AST [Catalytic activity/Vol] 27 U/L 15 - 46 U/L [place] Bilirubin Ql (U) 0.7 mg/dL 0.2 - 1.3 mg/dL [place] Calcium [Mass/Vol] 9.6 mg/dL 8.4 - 10.4 mg/dL [place] Chloride [Moles/Vol] 104 mmol/L 98 - 107 mmol/L [place] CO2 [Moles/Vol] 24 mmol/L 22 - 30 mmol/L [place] Creatinine [Mass/Vol] 0.88 mg/dL 0.52 - 1.25 mg/dL [place] EGFR IF NonAfrican [place] >60.0 >60 mL/min [place] Comment on above: Source- MDRD equatio n with creatinine calibration to IDMS(NKDEP) eGFR not recommended for drug dose adjustment GFR/1.73 sq M predicted among blacks MDRD (S/P/Bld) [Vol rate/Area] mL/min/{1.73_m2} >60 mL/min [place] Glucose [Mass/Vol] 71 mg/dL 70 - 100 mg/dL [place] Potassium [Moles/Vol] 3.6 mmol/L 3.5 - 5.1 mmol/L [place] Protein [Mass/Vol] 7.9 g/dL 6.3 - 8.2 g/dL [place] Sodium [Moles/Vol] 140 mmol/L 135 - 145 mmol/L [place] Urea nitrogen [Mass/Vol] 15 mg/dL 7 - 20 mg/dL [place] Free T4on 08-09-2019 Free T4 [Mass/Vol] 1.33 ng/dL Normal 0.78-2.19 [facility] Comment on above: Performed By: #### H EMDF, HA1C2, LIPD2, CMP3, FT4M, RPR, TSH5, B12, HEPC, HBSAG, HBSA, HIV4 #### [facility] [address] [place], [place] #### [id number] #### [facility] [address] [place] [address] HIV 1,2 Ab; p24 Agon 020 HIV 1,2 Ab; p24 Ag NONREACTIVE Normal Nonreactive [facility] Comment on above: Result Comment: Resu lts obtained using the FDA cleared 4th generation HIV test. This test detects antibodies to HIV1, HIV2, HIV Group O, and the presence of the HIV-1 p24 antigen. A Non-Reactive re- sult indicates the patient is negative for both HIV antibody and HIV p24 antigen. All reactive results will undergo reflex confirmation testing at an additional charge. Performed By: #### H EMDF, HA1C2, LIPD2, CMP3, FT4M, RPR, TSH5, B12, HEPC, HBSAG, HBSA, HIV4 #### [facility] [address], [place] #### [id number] #### [facility] [address] [place] [address] HIV Screenon 08-09-2019 HIV 1+2 [id number] AG, EIA NONREACTIVE Nonreactive [place], [place] Comment on above: Results obtained usi ng the FDA cleared 4th generation HIV test. This test detects antibodies to HIV1, HIV2, HIV Group O, and the presence of the HIV-1 p24 antigen. A Non-Reactive re- sult indicates the patient is negative for both HIV antibody and HIV p24 antigen. All reactive results will undergo reflex confirmation testing at an additional charge. Hemoglobin A1Con 08-09-2019 HbA1c (Bld) [Mass fraction] 5.0 % Normal 4.0-5.7 [facility] Comment on above: Result Comment: --Hg bA1C levels may not be accurate in patients who have renal disease, received recent blood transfusions, are anemic, or who have dyshemoglobinemia. Performed By: #### H EMDF, HA1C2, LIPD2, CMP3, FT4M, RPR, TSH5, B12, HEPC, HBSAG, HBSA, HIV4 #### [facility] [address], [place] #### [id number] #### [facility] [address] [place] [address] HbA1c (Bld) [Mass fraction] 97 mg/dL Normal [facility] Comment on above: Performed By: #### H EMDF, HA1C2, LIPD2, CMP3, FT4M, RPR, TSH5, B12, HEPC, HBSAG, HBSA, HIV4 #### [address] #### [id number] #### [facility] [address] [place] [address] eAG 97 mg/dL [place] HbA1c (Bld) [Mass fraction] 5.0 % 4 - 5.7 % [place] Comment on above: --HgbA1C levels may not be accurate in patients who have renal disease, received recent blood transfusions, are anemic, or who have dyshemoglobinemia. Test Performed by [address] Hemogram w/ Autodiffon 08-08 Abs Baso Cnt 0.0 10*3/uL Normal 0.0-0.2 [facility] Comment on above: Performed By: #### H EMDF, HA1C2, LIPD2, CMP3, FT4M, RPR, TSH5, B12, HEPC, HBSAG, HBSA, HIV4 #### [address] #### [id number] #### [facility] [address] [place] [address] Abs Neutrophile Cnt 2.3 10*3/uL Normal 1.8-7.0 [facility] Comment on above: Performed By: #### H EMDF, HA1C2, LIPD2, CMP3, FT4M, RPR, TSH5, B12, HEPC, HBSAG, HBSA, HIV4 #### [address] #### [id number] #### [facility] [address] [place] [address] Basophils/100 WBC (Bld) 0.8 % Normal 0.0-2.0 [facility] Comment on above: Performed By: #### H EMDF, HA1C2, LIPD2, CMP3, FT4M, RPR, TSH5, B12, HEPC, HBSAG, HBSA, HIV4 #### [facility] [address], [place] #### [id number] #### [facility] [address] [place] [address] Eosinophils (Bld) [#/Vol] 0.1 10*3/uL Normal 0.0-0.5 [facility] Comment on above: Performed By: #### H EMDF, HA1C2, LIPD2, CMP3, FT4M, RPR, TSH5, B12, HEPC, HBSAG, HBSA, HIV4 #### [address] #### [id number] #### [facility] [address] [place] [address] Eosinophils/100 WBC (Bld) 2.0 % Normal 1.0-6.0 [facility] Comment on above: Performed By: #### H EMDF, HA1C2, LIPD2, CMP3, FT4M, RPR, TSH5, B12, HEPC, HBSAG, HBSA, HIV4 #### [facility] [address], [place] #### [id number] #### [facility] [address] [place] [address] Erythrocyte distribution width (RBC) [Ratio] 12.8 % Normal 11.5-14.5 [facility] Comment on above: Performed By: #### H EMDF, HA1C2, LIPD2, CMP3, FT4M, RPR, TSH5, B12, HEPC, HBSAG, HBSA, HIV4 #### [facility] [address], [place] #### [id number] #### [facility] [address] [place] [address] Granulocytes/100 WBC (Bld) 59.6 % Normal 40.0-80.0 [facility] Comment on above: Performed By: #### H EMDF, HA1C2, LIPD2, CMP3, FT4M, RPR, TSH5, B12, HEPC, HBSAG, HBSA, HIV4 #### [facility] [address], [place] #### [id number] #### [facility] [address] [place] [address] Hematocrit (Bld) [Volume fraction] 44.5 % Normal 35.0-47.0 [facility] Comment on above: Performed By: #### H EMDF, HA1C2, LIPD2, CMP3, FT4M, RPR, TSH5, B12, HEPC, HBSAG, HBSA, HIV4 #### [address] #### [id number] #### [facility] [address] [place] [address] Hemoglobin (Bld) [Mass/Vol] 15.4 g/dL Normal 11.7-16.0 [facility] Comment on above: Performed By: #### H EMDF, HA1C2, LIPD2, CMP3, FT4M, RPR, TSH5, B12, HEPC, HBSAG, HBSA, HIV4 #### [address] #### [id number] #### [facility] [address] [place] [address] Lymphocytes (Bld) [#/Vol] 1.1 10*3/uL Normal 1.0-4.3 [facility] Comment on above: Performed By: #### H EMDF, HA1C2, LIPD2, CMP3, FT4M, RPR, TSH5, B12, HEPC, HBSAG, HBSA, HIV4 #### [address] #### [id number] #### [facility] [address] [place] [address] Lymphocytes/100 WBC (Bld) 28.6 % Normal 20.0-40.0 [facility] Comment on above: Performed By: #### H EMDF, HA1C2, LIPD2, CMP3, FT4M, RPR, TSH5, B12, HEPC, HBSAG, HBSA, HIV4 #### [facility] [address] [place], [place] #### [id number] #### [facility] [address] [place] [address] MCH (RBC) [Entitic mass] 30.2 pg Normal 26.0-34.0 [facility] Comment on above: Performed By: #### H EMDF, HA1C2, LIPD2, CMP3, FT4M, RPR, TSH5, B12, HEPC, HBSAG, HBSA, HIV4 #### [address] #### [id number] #### [facility] [address] [place] [address] MCHC (RBC) [Mass/Vol] 34.5 % Normal 32.0-36.0 [facility] Comment on above: Performed By: #### H EMDF, HA1C2, LIPD2, CMP3, FT4M, RPR, TSH5, B12, HEPC, HBSAG, HBSA, HIV4 #### [address] #### [id number] #### [facility] [address] [place] [address] MCV (RBC) [Entitic vol] 87.6 fL Normal 79.0-98.0 [facility] Comment on above: Performed By: #### H EMDF, HA1C2, LIPD2, CMP3, FT4M, RPR, TSH5, B12, HEPC, HBSAG, HBSA, HIV4 #### [address] #### [id number] #### [facility] [address] [place] [address] Monocytes (Bld) [#/Vol] 0.3 10*3/uL Normal 0.0-0.8 [facility] Comment on above: Performed By: #### H EMDF, HA1C2, LIPD2, CMP3, FT4M, RPR, TSH5, B12, HEPC, HBSAG, HBSA, HIV4 #### [facility] [address] [place], [place] #### [id number] #### [facility] [address] [place] [address] Monocytes/100 WBC (Bld) 9.0 % Normal 2.0-10.0 [facility] Comment on above: Performed By: #### H EMDF, HA1C2, LIPD2, CMP3, FT4M, RPR, TSH5, B12, HEPC, HBSAG, HBSA, HIV4 #### [facility] [address] [place], [place] #### [id number] #### [facility] [address] [place] [address] Platelet mean volume (Bld) [Entitic vol] 9.7 fL Normal 7.4-10.4 [facility] Comment on above: Performed By: #### H EMDF, HA1C2, LIPD2, CMP3, FT4M, RPR, TSH5, B12, HEPC, HBSAG, HBSA, HIV4 #### [address] #### [id number] #### [facility] [address] [place] [address] Platelets (Bld) [#/Vol] 253 10*3/uL Normal 140-440 [facility] Comment on above: Performed By: #### H EMDF, HA1C2, LIPD2, CMP3, FT4M, RPR, TSH5, B12, HEPC, HBSAG, HBSA, HIV4 #### [address] #### [id number] #### [facility] [address] [place] [address] RBC (Bld) [#/Vol] 5.08 10*6/uL Normal 3.80-5.20 [facility] Comment on above: Performed By: #### H EMDF, HA1C2, LIPD2, CMP3, FT4M, RPR, TSH5, B12, HEPC, HBSAG, HBSA, HIV4 #### [address] [address] [place], [place] #### [id number] #### [facility] [address] [place] [address] WBC (Bld) [#/Vol] 3.8 10*3/uL Normal 3.6-10.7 [facility] Comment on above: Performed By: #### H EMDF, HA1C2, LIPD2, CMP3, FT4M, RPR, TSH5, B12, HEPC, HBSAG, HBSA, HIV4 #### [facility] [address] [place], [place] #### [id number] #### [facility] [address] [place] [address] Hep B Surface Abon 0 Hep B Surface Ab 205.8 m[IU]/mL Normal [facility] Comment on above: Result Comment: Inte rpretation: <8.0 Non-Reactive 8.0-11.9 Equivocal >= 12.0 Ab Detected Performed By: #### H EMDF, HA1C2, LIPD2, CMP3, FT4M, RPR, TSH5, B12, HEPC, HBSAG, HBSA, HIV4 #### [facility] [address] [place], [place] #### [id number] #### [facility] [address] [place] [address] Hep B Surface Agon 0 Hep B Surface Ag NOT DETECTED Normal Not-Detected [facility] Comment on above: Performed By: #### H EMDF, HA1C2, LIPD2, CMP3, FT4M, RPR, TSH5, B12, HEPC, HBSAG, HBSA, HIV4 #### [facility] [address] [place], [place] #### [id number] #### [facility] [address] [place] [address] Hep C Antibodyon 08-09-2019 Hep C Antibody NOT DETECTED Normal Not-Detected [facility] Comment on above: Result Comment: Ade ents with DETECTED Hepatitis C Ab results should have a new specimen submitted for supplemental testing with a Hepatitis C Quantitative RNA assay (viral load), if clinically indicated. Performed By: #### H EMDF, HA1C2, LIPD2, CMP3, FT4M, RPR, TSH5, B12, HEPC, HBSAG, HBSA, HIV4 #### [facility] [address], [place] #### [id number] #### [facility] [address] [place] [address] Hepatitis B Surface Antibody on 08-09-2019 HBV surface Ab (S) [Titer] 205.8 m[IU]/mL [place] Comment on above: Interpretation: <8.0 Non-Reactive 8.0-11.9 Equivocal >= 12.0 Ab Detected Hepatitis B Surface Antigeno n 08-09-2019 Hepatitis B Surface Ag NOT DETECTED Not-Detected [place] Hepatitis C Antibodyon 08-08 Hepatitis C Ab NOT DETECTED Not-Detected [place] Comment on above: Patients with DETECT ED Hepatitis C Ab results should have a new specimen submitted for supplemental testing with a Hepatitis C Quantitative RNA assay (viral load), if clinically indicated. Lipid Panelon 08-09-2019 Cholesterol in HDL [Mass/Vol] 45 mg/dL Normal 40-60 [facility] Comment on above: Performed By: #### H EMDF, HA1C2, LIPD2, CMP3, FT4M, RPR, TSH5, B12, HEPC, HBSAG, HBSA, HIV4 #### [facility] [address], [place] #### [id number] #### [facility] [address] [place] [address] Cholesterol.total /Cholesterol in HDL [Mass ratio] 4 Normal [facility] Comment on above: Result Comment: Ref Range: < 3 Low Risk for CHD 3-6 Mod Risk for CHD > 6 High Risk for CHD Performed By: #### H EMDF, HA1C2, LIPD2, CMP3, FT4M, RPR, TSH5, B12, HEPC, HBSAG, HBSA, HIV4 #### [facility] [address], [place] #### [id number] #### [facility] [address] [place] [address] Protein [Mass/Vol] 116 mg/dL Abnormal <100 [facility] Comment on above: Performed By: #### H EMDF, HA1C2, LIPD2, CMP3, FT4M, RPR, TSH5, B12, HEPC, HBSAG, HBSA, HIV4 #### [facility] [address] [place] [address] #### [id number] #### [facility] [address] [place] [address] Triglyceride [Mass/Vol] 112 mg/dL Normal <150 [facility] Comment on above: Performed By: #### H EMDF, HA1C2, LIPD2, CMP3, FT4M, RPR, TSH5, B12, HEPC, HBSAG, HBSA, HIV4 #### [address] [address] #### [id number] #### [facility] [address] [place] [address] Cholesterol [Mass/Vol] 183 mg/dL Normal < 200 [facility] Comment on above: Performed By: #### H EMDF, HA1C2, LIPD2, CMP3, FT4M, RPR, TSH5, B12, HEPC, HBSAG, HBSA, HIV4 #### [address] [address] #### [id number] #### [facility] [address] [place] [address] Cholesterol [Mass/Vol] 183 mg/dL <200 [place] Cholesterol in HDL [Mass/Vol] 45 mg/dL 40 - 60 mg/dL [place] Cholesterol in LDL [Mass/Vol] 116 mg/dL Abnormal <100 [place] Cholesterol.total /Cholesterol in HDL [Mass ratio] 4 {ratio} [place] Comment on above: Ref Range: < 3 Low Risk for CHD 3-6 Mod Risk for CHD > 6 High Risk for CHD Interpretation and review of laboratory results Abnormal [place] Triglyceride [Mass/Vol] 112 mg/dL <150 [place] Otheron 08-09-2019 Test Performed by [facility], [address] [place] [id number] [place] [address] Test Performed by [facility], [address] [place] [address] RPR with FTA Relexon 020 Reagin Ab RPR Ql (S) NONREACTIVE Non-Reactive NA [place] Test Performed by [facility], [address] [place] [address] RPR, Qualon 08-09-2019 RPR, Qual NONREACTIVE Normal Non-Reactive [facility] Comment on above: Performed By: #### H EMDF, HA1C2, LIPD2, CMP3, FT4M, RPR, TSH5, B12, HEPC, HBSAG, HBSA, HIV4 #### [employer] [address] #### [id number] #### [employer] [facility] [address] [place] [address] T4, Freeon 08-09-2019 Free T4 [Mass/Vol] 1.33 ng/dL 0.78 - 2.19 ng/dL [place] Test Performed by [facility], [address] [place] [address] TSH without Reflexon 020 Interpretation and review of laboratory results Abnormal [place] TSH Qn 0.237 u[IU]/mL Low 0.465 - 4.68 u[IU]/mL [place] Test Performed by [facility], [address] [place] [address] Thyroid Stim. Hormoneon 07-29 Thyroid Stim. Hormone 0.237 u[IU]/mL Low 0.465-4.680 [facility] Comment on above: Performed By: #### H EMDF, HA1C2, LIPD2, CMP3, FT4M, RPR, TSH5, B12, HEPC, HBSAG, HBSA, HIV4 #### [facility] [address] [place] [address] #### VD25H #### [facility] [address] 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 Homogeneous echogenicity. No nodule. LEFT LOBE: 1.7 x 1.7 x 4.9 cm. Homogeneous echogenicity. There is a single thyroid nodule described below: Nodule Location: Superior left lobe Size: 0.4 x 0.6 x 0.8cm (AP x transverse x cephalocaudad) Echogenicity: Solid, hypoechoic Margins: well-circumscribed Calcifications: None identified TI-RADS category*: 4 - moderately suspicious Change since last exam: Not applicable Isthmus: 2 mm in AP diameter. Cervical lymph nodes: None identified. Other: There is an extrathyroidal soft tissue lesion lateral to the interpolar right thyroid lobe measuring approximately 0.5 x 1.0 x 2.6 cm. IMPRESSION: 1. Mild thyromegaly. 2. Left TI-RADS category 4 nodule measuring 0.8 cm, not meeting TI-RADS size criteria for biopsy. 3. Soft tissue lesion lateral to the right thyroid lobe. The etiology of this is uncertain. This could represent a soft tissue lesion or an abnormal lymph node. Consider tissue sampling. *TI-RADS (2017) Reference: Catalina Nash. ACR Thyroid Imaging, Reporting and Data System (TI-RADS): White Paper of the ACR TI-RADS Committee. J [facility]. August 2016. Please note: There are other existing guidelines to classify thyroid nodules to determine need for FNA and this decision will be deferred to the ordering physician. Thyroid nodule details (add points for total score): Composition(points): 1 - mixed cystic and solid 2 - solid Echogenicity: 1 - hyperechoic or isoechoic 2 - hypoechoic 3 - very hypoechoic Shape: 3 - taller than wide Margin: 2 - lobulated or irregular 3 - extrathyroidal extension Echogenic foci: 1 - macrocalcifications 2 - rim calcification 3 - microcalcifications Risk for malignancy: TI-RADS 1 - 0 points - (benign) <2% risk TI-RADS 2 - 2 points - (not suspicious) <5% TI-RADS 3 - 3 points - (mildly suspicious) <5% - FNA when >/= 2.5cm. Follow when >1.5cm at 1, 3 and 5 years TI-RADS 4 - 4-6 points - (moderately suspicious) 5-20% - FNA when >/= 1.5cm. Follow when >1cm at 1, 2, 3 and 5 years TI-RADS 5 - 7+ points - (highly suspicious) >20% - FNA when >/= 1cm. 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 Homogeneous echogenicity. No nodule. LEFT LOBE: 1.7 x 1.7 x 4.9 cm. Homogeneous echogenicity. There is a single thyroid nodule described below: Nodule Location: Superior left lobe Size: 0.4 x 0.6 x 0.8cm (AP x transverse x cephalocaudad) Echogenicity: Solid, hypoechoic Margins: well-circumscribed Calcifications: None identified TI-RADS category*: 4 - moderately suspicious Change since last exam: Not applicable Isthmus: 2 mm in AP diameter. Cervical lymph nodes: None identified. Other: There is an extrathyroidal soft tissue lesion lateral to the interpolar right thyroid lobe measuring approximately 0.5 x 1.0 x 2.6 cm. IMPRESSION: 1. Mild thyromegaly. 2. Left TI-RADS category 4 nodule measuring 0.8 cm, not meeting TI-RADS size criteria for biopsy. 3. Soft tissue lesion lateral to the right thyroid lobe. The etiology of this is uncertain. This could represent a soft tissue lesion or an abnormal lymph node. Consider tissue sampling. *TI-RADS (2017) Reference: aCtalina Nash. ACR Thyroid Imaging, Reporting and Data System (TI-RADS): White Paper of the ACR TI-RADS Committee. J [facility]. August 2016. Please note: There are other existing guidelines to classify thyroid nodules to determine need for FNA and this decision will be deferred to the ordering physician. Thyroid nodule details (add points for total score): Composition(points): 1 - mixed cystic and solid 2 - solid Echogenicity: 1 - hyperechoic or isoechoic 2 - hypoechoic 3 - very hypoechoic Shape: 3 - taller than wide Margin: 2 - lobulated or irregular 3 - extrathyroidal extension Echogenic foci: 1 - macrocalcifications 2 - rim calcification 3 - microcalcifications Risk for malignancy: TI-RADS 1 - 0 points - (benign) <2% risk TI-RADS 2 - 2 points - (not suspicious) <5% TI-RADS 3 - 3 points - (mildly suspicious) <5% - FNA when >/= 2.5cm. Follow when >1.5cm at 1, 3 and 5 years TI-RADS 4 - 4-6 points - (moderately suspicious) 5-20% - FNA when >/= 1.5cm. Follow when >1cm at 1, 2, 3 and 5 years TI-RADS 5 - 7+ points - (highly suspicious) >20% - FNA when >/= 1cm. 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 Homogeneous echogenicity. No nodule. LEFT LOBE: 1.7 x 1.7 x 4.9 cm. Homogeneous echogenicity. There is a single thyroid nodule described below: Nodule Location: Superior left lobe Size: 0.4 x 0.6 x 0.8cm (AP x transverse x cephalocaudad) Echogenicity: Solid, hypoechoic Margins: well-circumscribed Calcifications: None identified TI-RADS category*: 4 - moderately suspicious Change since last exam: Not applicable Isthmus: 2 mm in AP diameter. Cervical lymph nodes: None identified. Other: There is an extrathyroidal soft tissue lesion lateral to the interpolar right thyroid lobe measuring approximately 0.5 x 1.0 x 2.6 cm. IMPRESSION: 1. Mild thyromegaly. 2. Left TI-RADS category 4 nodule measuring 0.8 cm, not meeting TI-RADS size criteria for biopsy. 3. Soft tissue lesion lateral to the right thyroid lobe. The etiology of this is uncertain. This could represent a soft tissue lesion or an abnormal lymph node. Consider tissue sampling. *TI-RADS (2017) Reference: Catalina Nash. ACR Thyroid Imaging, Reporting and Data System (TI-RADS): White Paper of the ACR TI-RADS Committee. J [facility]. August 2016. Please note: There are other existing guidelines to classify thyroid nodules to determine need for FNA and this decision will be deferred to the ordering physician. Thyroid nodule details (add points for total score): Composition(points): 1 - mixed cystic and solid 2 - solid Echogenicity: 1 - hyperechoic or isoechoic 2 - hypoechoic 3 - very hypoechoic Shape: 3 - taller than wide Margin: 2 - lobulated or irregular 3 - extrathyroidal extension Echogenic foci: 1 - macrocalcifications 2 - rim calcification 3 - microcalcifications Risk for malignancy: TI-RADS 1 - 0 points - (benign) <2% risk TI-RADS 2 - 2 points - (not suspicious) <5% TI-RADS 3 - 3 points - (mildly suspicious) <5% - FNA when >/= 2.5cm. Follow when >1.5cm at 1, 3 and 5 years TI-RADS 4 - 4-6 points - (moderately suspicious) 5-20% - FNA when >/= 1.5cm. Follow when >1cm at 1, 2, 3 and 5 years TI-RADS 5 - 7+ points - (highly suspicious) >20% - FNA when >/= 1cm. Follow when >0.5cm every year for up to 5 years Report Dictated on Final Dictated: 08/09/2019 7:57 am Dictating Physician: MD JAMES NICHOLAS Signed Date and Time: 08/09/2019 8:01 am Signed by: MD JAMES NICHOLAS Transcribed Date and Time: 08/09/2019 7:57 Normal [facility] Vit D 25-OH, Totalon 020 Vit D 25-OH, Total 63 ng/mL Normal 30-100 [facility] Comment on above: Result Comment: Ther apy is based on measurement of Total 25- OHD with the following classification levels: Less than 20 ng/mL: Indicative of Vit D deficiency 20-30 ng/mL: Suggests Vit D insufficiency Optimal: Greater than or equal to 30 ng/mL Test performed by [employer] Competitive Immunoassay, measuring Total Vitamin D, not individual fractions. Performed By: #### H EMDF, HA1C2, LIPD2, CMP3, FT4M, RPR, TSH5, B12, HEPC, HBSAG, HBSA, HIV4 #### [facility] [address] [place] [address] #### [id number] #### [facility] [address] [place] [address] Vitamin B12on 08-09-2019 Cobalamin (Vitamin B12) [Mass/Vol] 463 pg/mL Normal [id number] [facility] Comment on above: Performed By: #### H EMDF, HA1C2, LIPD2, CMP3, FT4M, RPR, TSH5, B12, HEPC, HBSAG, HBSA, HIV4 #### [facility] [address] [place] [address] #### VD25H #### [facility] [address] [place] [address] Cobalamin (Vitamin B12) [Mass/Vol] 463 pg/mL 239 - 931 pg/mL [place], [place] Test Performed by [facility], [address] [place] [address] [place], [place] Vitamin D 25 Hydroxyon 08-08 Vit D, 25-Hydroxy 63 ng/mL 30 - 100 ng/mL [place], [place] Comment on above: Therapy is based on measurement of Total 25-OHD with the following classification levels: Less than 20 ng/mL: Indicative of Vit D deficiency 20-30 ng/mL: Suggests Vit D insufficiency Optimal: Greater than or equal to 30 ng/mL Test performed by [employer] Immunoassay, measuring Total Vitamin D, not individual fractions. Test Performed by [facility], [address] [place], [place] [id number] [place] [address] CNOVon 12-15-2016 CNOV Office Visit (EXPGREAG) HERMELINDO SANABRIA ([id number]) 1990 FDate Time Provider Department12/15/16 10:00 AM LAIT REED (ELIZABETH) EXPGREAG During your visit today, we recorded the following information about you: Temperature Pulse Respiration Blood pressure 99.2 degrees 96/minute 16/minute 120/75 Weight Height Last Period 77.9 kg 1.727 m 11/16/16Liat eRed NP 12/15/2016 10:30 AM SignedHPI Comments: Patient is healthy otherwiseNo chance of at this time.No recent antibiotic use.Patient is a 26 year old female presenting with sore throat. The history isprovided by the patient.Sore ThroatThis is a new problem. The current episode started in the past 7 days (day 6 ).The problem has been unchanged. The maximum temperature recorded prior to herarrival was 101 - 101.9 F. The fever has been present for 1 to 2 days. The painis mild. Associated symptoms include diarrhea and swollen glands. Pertinentnegatives include no abdominal pain, congestion, coughing, drooling, ear pain,headaches, hoarse voice, plugged ear sensation, neck pain, shortness of breath,stridor, trouble swallowing or vomiting. Associated symptoms comments: Diarrheaand nausea that has improved since last night . She has had no exposure tostrep or mono. The treatment provided mild relief.Review of SystemsConstitutional: Positive for fever and malaise/fatigue. Negative for weightloss. Tactile fever at homeHENT: Positive for sore throat. Negative for congestion, drooling, ear pain,hoarse voice and trouble swallowing.Respiratory: Negative for cough, shortness of breath, wheezing and stridor.Cardiovascular: Negative for chest pain.Gastrointestinal: Positive for diarrhea and nausea. Negative for abdominal painand vomiting.Musculoskeletal: Positive for myalgias. Negative for neck pain.Neurological: Negative for dizziness, loss of consciousness and headaches.Physical ExamConstitutional: She is oriented to person, place, and time and well-developed,well-nouris hed, and in no distress. Vital signs are normal. No distress.HENT:Head: Normocephalic and atraumatic.Right Ear: Tympanic membrane, external ear and ear canal normal.Left Ear: Tympanic membrane, external ear and ear canal normal.Nose: Nose normal.Mouth/Throat: Uvula is midline and mucous membranes are normal. Posteriororopharyngeal edema and posterior oropharyngeal erythema present. Nooropharyngeal exudate or tonsillar abscesses.Airway patent and intactTonsils +2 and erythematousNo droolingEyes: Conjunctivae, EOM and lids are normal. Pupils are equal, round, andreactive to light. Right eye exhibits no discharge. Left eye exhibits nodischarge.Neck: Normal range of motion. Neck supple. No edema and normal range of motionpresent.Cardiovascul ar: Normal rate, regular rhythm, normal heart sounds and intactdistal pulses.No murmur heard.Pulmonary/Chest: Effort normal and breath sounds normal. No stridor. Norespiratory distress. She has no wheezes. She has no rales. She exhibits notenderness.Abdominal: Soft. Normal appearance and bowel sounds are normal. She exhibits nodistension and no mass. There is no tenderness. There is no rebound and noguarding.Musculoskeletal : Normal range of motion.Lymphadenopathy: She has cervical adenopathy.Neurological: She is alert and oriented to person, place, and time. Gaitnormal. GCS score is 15.Skin: Skin is warm, dry and intact. No rash noted. She is not diaphoretic.Psychiatric: Mood and affect normal.Nursing note and vitals reviewed.-I have reviewed and updated with the patient: allergies, VS, currentmedications, Past Medical History,Past Surgical History, Past Social History.BP 120/75 Pulse 96 Temp (Src) 99.2 (Oral) Resp 16 Ht 5' 8ANDquot; (1.73m) Wt 171 lb 12.8 oz (77.9kg) SpO2 98% LMP 11/16/2016 BMI 26.13 kg/(m2).ASSESSMENT/PLAN:1. Strep throat - ICD9: 034.0, ICD10: J02.0- suspect strep- Rapid Strep positive in the office today- antibiotic as written and Zithromax for PCN allergy.- Contagious dz precautions discussed- including considered contagious untilon antibiotics for 24 hours- The patient should follow up in 3-5 days if symptoms persist or worsen- Call back if drooling, increased temperature, symptoms of dehydration and/orstill sick in one week- RAPID STREP TEST B/O- work note givenPatient instructed to follow-up with PCP as directed, and to return here or goto the Emergency Department with new or worsening symptoms, despite treatment.I did discuss with the patient symptoms that would warrant immediate follow-upin the Emergency Department. The patient verbalizes understanding of the planof care and is in agreement. Patient discharged without incident, in stablecondition.?Julia Castro NP 12/15/2016 10:21 AM SignedIf you begin to experience a severe reaction or complication from the treatmentyou received at the [facility], please go to the nearest emergency room forfurther evaluation.? Follow up with your primary care doctor in 2-3 days? Report to Emergency Department with any worsening of symptoms orlife-threatening concerns? Warning signs of worsening conditions explained to patient? Educational information regarding today's complaint given to patient? Patient left in stable condition after questions answered? Patient verbalized understandingWhat is strep throat?Strep throat is an infection caused by a specific type of bacteria,Streptococcus. When your child has a strep throat, the tonsils are usually veryinflamed, and the inflammation may affect the surrounding part of the throat aswell.SymptomsStrep throat is caused by a bacterium called Streptococcus pyogenes. To someextent, the symptoms of strep throat depend on the child?s age.- Infants with strep infections may have only a low fever and a thickened orbloody nasaldischarge.- Toddlers (ages one to three) also may have a thickened or bloody nasaldischarge with a fever. Such children are usually quite cranky, have noappetite, and often have swollen glands in the neck. Sometimes toddlers willcomplain of tummy pain instead of a sore throat.- Children over three years of age with strep are often more ill; they may havean extremely painful throat, fever over 102 degrees Fahrenheit (38.9 degreesCelsius), swollen glands in the neck, and pus on the tonsils.It?s important to be able to distinguish a strep throat from a viral sorethroat, because strep infections are treated with antibiotics.When to call the pediatricianIf your child has a sore throat that persists (not one that goes away after herfirst drink in the morning), whether or not it is accompanied by fever,headache, stomachache, or extreme fatigue, you should call your wire roller.That call should be made even more urgently if your child seems extremely ill,or if she has difficulty breathing or extreme trouble swallowing (causing herto drool). This may indicate a more serious infection.TreatmentIf the strep test shows that your child does have strep throat, yourpediatrician will prescribe an antibiotic to be taken by mouth or by injection.If your child is given the oral medication, it?s very important that she takeit for the full course, as prescribed, even if the symptoms get better or goaway.If a child?s strep throat is not treated with antibiotics, or if she doesn?tcomplete the treatment, the infection may worsen or spread to other parts ofher body, leading to conditions such as abscesses of the tonsils or kidneyproblems. Untreated strepinfections also can lead to rheumatic fever, a disease that affects the heart.However, rheumatic fever is rare in the [place] and in children underfive years old.PreventionMost types of throat infections are contagious, being passed primarily throughthe air on droplets of moisture or on the hands of infected children or adults.For that reason, it makes sense to keep your child away from people who havesymptoms of thiscondition. However, most people are contagious before their first symptomsappear, so often there?s really no practical way to prevent your child fromcontracting the disease.In the past when a child had several sore throats, her tonsils might have beenremoved in an attempt to prevent further infections. But this operation, calleda tonsillectomy, is recommended today only for the most severely affectedchildren. Even in difficultcases, where there is repeated strep throat, antibiotic treatment is usuallythe best solution.Referring Provider: SELF [[id number]]Allergies As of Date: 12/15/2016 Noted Allergy ReactionPENICILLINS 02/20/2016 16 - UnknownDate Reviewed: 12/15/2016Reviewed by: Liat Ortiz) Derek - Fully AssessedReason for Visit: Fever [47] Cmt: facial swelling, abdominal cramping AND diarrhea x 3 daysReason For Visit History RecordedPrimary Visit Diagnosis:Strep throat [J02.0]Order(s):RAPID STREP TEST B/O [[id number]] Order #: [id number] azithromycin (ZITHROMAX Z-MARCE) 250 mg tabletTake 1 tablet by mouth once daily for 5 days. Take 2 tablets day 1, take 1 tablet days 2-5Disp: 6 tabletRfl: 0Prescriptions as of 12/15/2016 Sig: DESOGESTREL 0.15 MG-ETHINYL E* Take 1 tablet by mouth once d* AZITHROMYCIN 250 MG TABLET Take 1 tablet by mouth once d*Problem List As Of Date: 12/15/2016(None) Other instructions from your clinician: If you begin to experience a severe reaction or complication from the treatment you received at the [facility], please go to the nearest emergency room for further evaluation. ? Follow up with your primary care doctor in 2-3 days ? Report to Emergency Department with any worsening of symptoms or life-threatening concerns ? Warning signs of worsening conditions explained to patient ? Educational information regarding today's complaint given to patient ? Patient left in stable condition after questions answered ? Patient verbalized understanding What is strep throat? Strep throat is an infection caused by a specific type of bacteria, Streptococcus. When your child has a strep throat, the tonsils are usually very inflamed, and the inflammation may affect the surrounding part of the throat as well. Symptoms Strep throat is caused by a bacterium called Streptococcus pyogenes. To some extent, the symptoms of strep throat depend on the child?s age. - Infants with strep infections may have only a low fever and a thickened or bloody nasal discharge. - Toddlers (ages one to three) also may have a thickened or bloody nasal discharge with a fever. Such children are usually quite cranky, have no appetite, and often have swollen glands in the neck. Sometimes toddlers will complain of tummy pain instead of a sore throat. - Children over three years of age with strep are often more ill; they may have an extremely painful throat, fever over 102 degrees Fahrenheit (38.9 degrees Celsius), swollen glands in the neck, and pus on the tonsils. It?s important to be able to distinguish a strep throat from a viral sore throat, because strep infections are treated with antibiotics. When to call the wire roller If your child has a sore throat that persists (not one that goes away after her first drink in the morning), whether or not it is accompanied by fever, headache, stomachache, or extreme fatigue, you should call your wire roller. That call should be made even more urgently if your child seems extremely ill, or if she has difficulty breathing or extreme trouble swallowing (causing her to drool). This may indicate a more serious infection. Treatment If the strep test shows that your child does have strep throat, your wire roller will prescribe an antibiotic to be taken by mouth or by injection. If your child is given the oral medication, it?s very important that she take it for the full course, as prescribed, even if the symptoms get better or go away. If a child?s strep throat is not treated with antibiotics, or if she doesn?t complete the treatment, the infection may worsen or spread to other parts of her body, leading to conditions such as abscesses of the tonsils or kidney problems. Untreated strep infections also can lead to rheumatic fever, a disease that affects the heart. However, rheumatic fever is rare in the [place] and in children under five years old. Prevention Most types of throat infections are contagious, being passed primarily through the air on droplets of moisture or on the hands of infected children or adults. For that reason, it makes sense to keep your child away from people who have symptoms of this condition. However, most people are contagious before their first symptoms appear, so often there?s really no practical way to prevent your child from rebeca the disease. In the past when a child had several sore throats, her tonsils might have been removed in an attempt to prevent further infections. But this operation, called a tonsillectomy, is recommended today only for the most severely affected children. Even in difficult cases, where there is repeated strep throat, antibiotic treatment is usually the best solution.Prescriptions ordered this encounter Disp Refills Start End AZITHROMYCIN 250 MG TABLET 6 ta* 0 12/15/2016 12/20/2016 Route: ORAL Sig: Take 1 tablet by mouth once daily for 5 days. Take 2 tablets day 1, take 1 tablet days 2-5Letter Terry Vizcarra [address] [place], [place] [address]Eb- [phone] Fax- [phone]: December 15, 2016RE: Regina Zambrano Whom It May Concern:This is to certify that the above named patient is under my care from12/14-12/17 and can return to work on 12/17/16. If you have any questionsplease feel free to call the office.Thank you,Liat Reed NPEncounter Number: [id number] Status:Closed by LIAT REED NP on 12/15/16 [facility] PROGRESSon 12-15-2016 PROGRESS HNO ID: [id number] thor: Liat (Elizabeth) RolyeService: (none)Author Type: Nurse PractitionerType: Progress NotesFiled: 12/15/2016 10:30 AMNote Text:HPI Comments: Patient is healthy otherwiseNo chance of at this time.No recent antibiotic use.Patient is a 26 year old female presenting with sore throat. The historyis provided by the patient.Sore ThroatThis is a new problem. The current episode started in the past 7 days (day6 ). The problem has been unchanged. The maximum temperature recordedprior to her arrival was 101 - 101.9 F. The fever has been present for 1to 2 days. The pain is mild. Associated symptoms include diarrhea andswollen glands. Pertinent negatives include no abdominal pain, congestion,coughing, drooling, ear pain, headaches, hoarse voice, plugged earsensation, neck pain, shortness of breath, stridor, trouble swallowing orvomiting. Associated symptoms comments: Diarrhea and nausea that hasimproved since last night . She has had no exposure to strep or mono. Thetreatment provided mild relief.Review of SystemsConstitutional: Positive for fever and malaise/fatigue. Negative forweight loss. Tactile fever at homeHENT: Positive for sore throat. Negative for congestion, drooling, earpain, hoarse voice and trouble swallowing.Respiratory: Negative for cough, shortness of breath, wheezing andstridor.Cardiovascular: Negative for chest pain.Gastrointestinal: Positive for diarrhea and nausea. Negative for abdominalpain and vomiting.Musculoskeletal: Positive for myalgias. Negative for neck pain.Neurological: Negative for dizziness, loss of consciousness and headaches.Physical ExamConstitutional: She is oriented to person, place, and time andwell-developed, well-nourished, and in no distress. Vital signs arenormal. No distress.HENT:Head: Normocephalic and atraumatic.Right Ear: Tympanic membrane, external ear and ear canal normal.Left Ear: Tympanic membrane, external ear and ear canal normal.Nose: Nose normal.Mouth/Throat: Uvula is midline and mucous membranes are normal. Posteriororopharyngeal edema and posterior oropharyngeal erythema present. Nooropharyngeal exudate or tonsillar abscesses.Airway patent and intactTonsils +2 and erythematousNo droolingEyes: Conjunctivae, EOM and lids are normal. Pupils are equal, round, andreactive to light. Right eye exhibits no discharge. Left eye exhibits nodischarge.Neck: Normal range of motion. Neck supple. No edema and normal range ofmotion present.Cardiovascular: Normal rate, regular rhythm, normal heart sounds andintact distal pulses.No murmur heard.Pulmonary/Chest: Effort normal and breath sounds normal. No stridor. Norespiratory distress. She has no wheezes. She has no rales. She exhibitsno tenderness.Abdominal: Soft. Normal appearance and bowel sounds are normal. Sheexhibits no distension and no mass. There is no tenderness. There is norebound and no guarding.Musculoskeletal: Normal range of motion.Lymphadenopathy: She has cervical adenopathy.Neurological: She is alert and oriented to person, place, and time. Gaitnormal. GCS score is 15.Skin: Skin is warm, dry and intact. No rash noted. She is not diaphoretic.Psychiatric: Mood and affect normal.Nursing note and vitals reviewed.-I have reviewed and updated with the patient: allergies, VS, currentmedications, Past Medical History,Past Surgical History, Past SocialHistory.BP 120/75 Pulse 96 Temp (Src) 99.2 (Oral) Resp 16 Ht 5' 8 (1.73m) Wt 171 lb 12.8 oz (77.9kg) SpO2 98% LMP 11/16/2016 BMI 26.13kg/(m2).ASSESSMENT/PL AN:1. Strep throat - ICD9: 034.0, ICD10: J02.0- suspect strep- Rapid Strep positive in the office today- antibiotic as written and Zithromax for PCN allergy.- Contagious dz precautions discussed- including considered contagiousuntil on antibiotics for 24 hours- The patient should follow up in 3-5 days if symptoms persist or worsen- Call back if drooling, increased temperature, symptoms of dehydrationand/or still sick in one week- RAPID STREP TEST B/O- work note givenPatient instructed to follow-up with PCP as directed, and to return hereor go to the Emergency Department with new or worsening symptoms, despitetreatment. I did discuss with the patient symptoms that would warrantimmediate follow-up in the Emergency Department. The patient verbalizesunderstanding of the plan of care and is in agreement. Patient dischargedwithout incident, in stable condition.?Liat Reed NP [facility] Vital Signs Date Time Vital Sign Value Performing Clinician Zeenati micah 01-02-2025 13:40-0400 Body height 172.[address] Alejandra Lovelace MD Work Phone: [facility] 01-02-2025 13:40-0400 Body mass index (BMI) [Ratio] 34.9 kg/m2 Dr. Alejandra Lovelace MD Work Phone: [facility] 01-02-2025 13:40-0400 Body temperature 97.6 [degF] Dr. Alejandra Lovelace MD Work Phone: [facility] 01-02-2025 13:40-0400 Body weight 104.[address] Alejandra Lovelace MD Work Phone: [facility] 01-02-2025 13:40-0400 Diastolic blood pressure 72 mm[Hg] Dr. Alejandra Lovelace MD Work Phone: [facility] 01-02-2025 13:40-0400 Heart rate 112 /min Dr. Alejandra Lovelace MD Work Phone: [facility] 01-02-2025 13:40-0400 Respiratory rate 16 /min Dr. Alejandra Lovelace MD Work Phone: [facility] 01-02-2025 13:40-0400 SaO2% (BldA) [Mass fraction] 99 % Dr. Alejandar Lovelace MD Work Phone: [facility] 01-02-2025 13:40-0400 Systolic blood pressure 128 mm[Hg] Dr. Alejandra Lovelace MD Work Phone: [facility] 12-16-2023 15:01-0400 Body height 172.7 cm Donita Garcia MD Work Phone: [facility] 12-16-2023 15:01-0400 Body mass index (BMI) [Ratio] 32.08 kg/m2 Donita Garcia MD Work Phone: [facility] 12-16-2023 15:01-0400 Body weight 95.71 kg Donita Garcia MD Work Phone: [facility] 12-16-2023 15:01-0400 Diastolic blood pressure 87 mm[Hg] Donita Garcia MD Work Phone: [facility] 12-16-2023 15:01-0400 Heart rate 80 /min Donita Garcia MD Work Phone: [facility] 12-16-2023 15:01-0400 SaO2% (BldA) [Mass fraction] 98 % Donita Garcia MD Work Phone: [facility] 12-16-2023 15:01-0400 Systolic blood pressure 139 mm[Hg] Donita Garcia MD Work Phone: [facility] 12-01-2023 15:22-0400 Body height 172.7 cm Jannet Garcia MD Work Phone: [facility] 12-01-2023 15:22-0400 Body mass index (BMI) [Ratio] 32.23 kg/m2 Jannet Garcia MD Work Phone: [facility] 12-01-2023 15:22-0400 Body weight 96.16 kg Jannet Garcia MD Work Phone: [facility] 12-01-2023 15:22-0400 Diastolic blood pressure 84 mm[Hg] Jannet Garcia MD Work Phone: [facility] 12-01-2023 15:22-0400 Systolic blood pressure 126 mm[Hg] Jannet Garcia MD Work Phone: [facility] 05-13-2023 17:19-0500 Body height 172.7 cm Desire Christy [employer]URAL [employer] SUPERVISOR Work Phone: [facility] 05-13-2023 17:19-0500 Body mass index (BMI) [Ratio] 31.63 kg/m2 Desire Christy [employer]GRICULTURAL AND FORE[employer] SUPERVISOR Work Phone: [facility] 05-13-2023 17:19-0500 Body temperature 97.3 [degF] Desire Christy [employer]GRICULTURAL AND [employer]Y SUPERVISOR Work Phone: [facility] 05-13-2023 17:19-0500 Body weight 94.35 kg Desire Christy [employer]GRICULTURAL AND [employer] SUPERVISOR Work Phone: [facility] 05-13-2023 17:19-0500 Diastolic blood pressure 74 mm[Hg] Desire Christy [employer]GR[employer]ULTURAL AND [employer] SUPERVISOR Work Phone: [facility] 05-13-2023 17:19-0500 Heart rate 76 /min Desire Christy AGR[employer]ULTURAL AND [employer] SUPERVISOR Work Phone: [facility] 05-13-2023 17:19-0500 SaO2% (BldA) [Mass fraction] 100 % Desireumer Christy AGRICULTURAL AND FORESTRY SUPERVISOR Work Phone: [facility] 05-13-2023 17:19-0500 Systolic blood pressure 149 mm[Hg] Desire Christy AGRICULTURAL AND FORESTRY SUPERVISOR Work Phone: [facility] 12-10-2022 14:49-0400 Body height 172.7 cm Donita Garcia MD Work Phone: [facility] 12-10-2022 14:49-0400 Body mass index (BMI) [Ratio] 30.53 kg/m2 Donita Garcia MD Work Phone: [facility] 12-10-2022 14:49-0400 Body temperature 98.8 [degF] Donita Garcia MD Work Phone: [facility] 12-10-2022 14:49-0400 Body weight 91.08 kg Donita Garcia MD Work Phone: [facility] 12-10-2022 14:49-0400 Diastolic blood pressure 83 mm[Hg] Donita Garcia MD Work Phone: [facility] 12-10-2022 14:49-0400 Heart rate 76 /min Donita Garcia MD Work Phone: [facility] 12-10-2022 14:49-0400 Systolic blood pressure 128 mm[Hg] Donita Garcia MD Work Phone: [facility] 09-30-2022 12:22-0400 Body height 172.7 cm Jannet Garcia MD Work Phone: [facility] 09-30-2022 12:22-0400 Body mass index (BMI) [Ratio] 29.5 kg/m2 Jannet Garcia MD Work Phone: [facility] 09-30-2022 12:22-0400 Body weight 88 kg Jannet Garcia MD Work Phone: [facility] 09-30-2022 12:22-0400 Diastolic blood pressure 62 mm[Hg] Jannet Garcia MD Work Phone: [facility] 09-30-2022 12:22-0400 Systolic blood pressure 110 mm[Hg] Jannet Garcia MD Work Phone: [facility] Encounters Encounter Date Encounter Type Care Provider Facility Start: 01-02-[address] Naz Lovelace MD -[facility] Start: 01-02-2025 End: 01-02-[address] Alejandra Lovelace MD Work Phone: -[facility] Start: 01-02-2025 End: 01-02-[address] Alejandra Lovelace MD -[facility] Work Phone: Start: 11-08-2024 ambulatory [facility] Facility :[facility] Start: 10-28-2024 End: 10-28-2024 Letter encounter Joanne Robison MD Work Phone: [facility] Start: 09-29-2024 ambulatory [facility] [place] Facility :[facility] Start: 01-03-2024 End: 01-06-2024 Telephone encounter Jannet Garcia MD Work Phone: [facility] Comment on above: Orders (Patient need s to schedule [place] Hysterosalpingogram.) Start: 12-16-2023 End: 12-16-2023 Patient encounter status Donita Garcia MD Work Phone: [facility] Work Phone: Start: 12-16-2023 End: 12-16-2023 Periodic preventive med est patient 18-39 yrs Donita Garcia MD Work Phone: [facility] Comment on above: Routine adult health maintenance (Primary Dx); Pure hypercholesterolemia; Abnormal TSH Start: 12-16-2023 End: 12-16-2023 ambulatory [facility] Start: 12-16-2023 End: 12-16-2023 Encounter for general adult medical examination without abnormal findings [facility] Start: 12-01-2023 End: 12-01-2023 Patient encounter status Jannet Garcia MD Work Phone: [facility] Work Phone: Start: 12-01-2023 End: 12-01-2023 Periodic preventive med est patient 18-39 yrs Jannet Garcia MD Work Phone: [facility] Comment on above: Encounter for gyneco logical examination with abnormal finding (Primary Dx); Screening for cervical cancer; Fertility testing Start: 12-01-2023 End: 12-01-2023 ambulatory JANNET [facility] Start: 12-01-2023 End: 12-01-2023 Encounter for gynecological examination (general) (routine) with abnormal findings [facility] Start: 05-13-2023 End: 05-13-2023 Office outpatient visit 15 minutes Desire Christy NP Work Phone: [facility] Comment on above: Viral pharyngitis (P rimary Dx); Sore throat; Middle ear effusion, bilateral Start: 05-13-2023 End: 05-13-2023 ambulatory [facility] Start: 05-09-2023 Letter encounter Joanne chin MD Work Phone: [facility] Start: 12-10-2022 End: 12-10-2022 Patient encounter status Donita Garcia MD Work Phone: [facility] Work Phone: Start: 12-10-2022 End: 12-10-2022 Periodic preventive med est patient 18-39 yrs Donita Garcia MD Work Phone: [facility] Comment on above: Routine adult health maintenance (Primary Dx); Pure hypercholesterolemia Start: 09-30-2022 End: 09-30-2022 Patient encounter status Jannet Garcia MD Work Phone: [facility] Start: 09-30-2022 End: 09-30-2022 Periodic preventive med est patient 18-39 yrs Jannet Garcia MD Work Phone: [facility] Comment on above: Encounter for gyneco logical examination without abnormal finding (Primary Dx) Start: 08-11-2022 Letter encounter Joanne chin MD Work Phone: [facility] Start: 08-09-2019 End: 08-09-2019 Subsequent hospital visit by physician Hemalatha Nieves Work Phone: [facility] Comment on above: Thyromegaly; Routine screening for STI (sexually transmitted infection); Screening for lipid disorders; Screening for diabetes mellitus; Wellness examination; Need for hepatitis C screening test; Need for hepatitis B screening test; Screening for HIV (human immunodeficiency virus); Other fatigue Start: 07-10-2015 End: 07-10-2015 ambulatory JOANNE ROBISON Facility:[facility] Start: 01-03-2014 Patient encounter status Jacob Robison MD [facility] Work Phone: Procedures Date Procedure Procedure Detail Performing Clinician Start: 12-16-2023 Adult depression scr eening assessment Donita Garcia MD Work Phone: Start: 12-01-2023 Microscopic observat ion [Identifier] in Cervix by Cyto stain Donita Garcia MD Work Phone: Start: 05-13-2023 Iadna streptococcus group a amplified probe tq Desire Christy AGRICULTURAL AND FORESTRY SUPERVISOR Work Phone: Start: 12-10-2022 Adult depression scr eening assessment Donita Garcia MD Work Phone: Start: 09-17-2021 Microscopic observat ion [Identifier] in Cervix by Cyto stain Jannet Garcia MD Work Phone: Start: 08-09-2019 Iadna multiple organ isms direct probe tq Hemalatha Stephanie Work Phone: Start: 08-09-2019 25 hydroxy includes fractions if performed Hemalatha Stephanie Work Phone: Start: 08-09-2019 Antibody hiv-1&hiv-2 single result Hemalatha Stephanie Work Phone: Start: 08-09-2019 Assay of free thyroxine Hemalatha Stephanie Work Phone: Start: 08-09-2019 Assay of thyroid stimulating hormone tsh Hemalatha Stephanie Work Phone: Start: 08-09-2019 Blood count complete auto&auto difrntl wbc Hemalatha Stephanie Work Phone: Start: 08-09-2019 Comprehensive metabo lic panel Hemalatha Stephanie Work Phone: Start: 08-09-2019 Cyanocobalamin vitamin b-12 Hemalatha Stephanie Work Phone: Start: 08-09-2019 Hemoglobin glycosylated a1c Hemalatha Stephanie Work Phone: Start: 08-09-2019 Hepatitis b surf ant ibody hbsab Hemalatha Stephanie Work Phone: Start: 08-09-2019 Hepatitis c antibody Na luna Stephanie Work Phone: Start: 08-09-2019 Iaad ia hepatitis b surface antigen Hemalatha Nieves Work Phone: Start: 08-09-2019 Lipid panel Hemalathaluna Cazares e Work Phone: Start: 08-09-2019 Syphilis test non-treponemal antibody qual Hemalatha Nieves Work Phone: Start: 08-09-2019 Us soft tissue head & neck real time imge docm Hemalatha Nieves Work Phone: Start: 05-18-2014 Microscopic observat ion [Identifier] in Cervix by Cyto stain Joanne Robison MD Work Phone: Plan of Treatment Date Care Activity Detail Author Start: 2050 RSV Immunization aged 60 or older (1 - 1-dose 60+ series) RSV Immunization aged 60 or older (1 - 1-dose 60+ series) [facility] Start: 2040 Shingles (RZV) Vaccine (1 of 2) Shingles (RZV) Vaccine (1 of 2) [facility] Start: 2040 Shingles Vaccine (1 of 2) Shingles Vaccine (1 of 2) [facility] [place] Start: 2040 Zoster Vaccines (1 of 2) Zoster Vaccines (1 of 2) [facility] Start: 11-30-2028 Screening for malignant neoplasm of cervix [facility] Start: 11-30-2026 Screening for malignant neoplasm of cervix Pap Smear [facility] Start: 09-17-2026 Screening for malignant neoplasm of cervix [facility] Start: 01-02-2025 CBC W Auto Differential panel - Blood [facility] Start: 01-02-2025 Comprehensive metabolic 2000 panel - Serum or Plasma [facility] Start: 01-02-2025 Lipid 1996 panel - Serum or Plasma [facility] Start: 01-02-2025 Thyroid stimulating hormone measurement [facility] Start: 12-18-2024 End: 12-18-2024 Patient encounter procedure 12/18/2024 3:00 PM EDT Office Visit [facility] [facility] [address] [place] [address] Aracelis Bedolla DO [address] [place], [place] [id number] [facility] Start: 12-15-2024 Depression Screening Depression Screening [facility] Start: 12-13-2024 End: 12-13-2024 Patient encounter procedure 12/13/2024 2:00 PM EDT Office Visit [facility] [address] [place] [phone] Jannet Garcia MD [address] [place], [place] [phone] [facility] Start: 09-17-2024 Screening for malignant neoplasm of cervix Pap Smear [facility] Start: 01-30-2024 COVID-19 Vaccine () COVID-19 Vaccine () [facility] Start: 01-30-2024 Influenza vaccination Influenza Vaccine (#1) [facility] Start: 01-04-2024 DTaP/Tdap/Td vaccine (2 - Td) DTaP/Tdap/Td vaccine (2 - Td) [place] Start: 01-04-2024 DTaP/Tdap/Td Vaccines (2 - Td or Tdap) DTaP/Tdap/Td Vaccines (2 - Td or Tdap) [facility] Start: 01-04-2024 Tetanus vaccination Tetanus (Td or Tdap) Booster [facility] Start: 12-20-2023 End: 12-20-2023 Patient encounter procedure 12/20/2023 3:20 PM EDT Office Visit [facility] Dermatology [address] [place] [phone] Veda Martinez PA-C [address] [place] [address] [facility] Start: 12-16-2023 End: 12-16-2023 Patient encounter procedure [facility] Start: 12-16-2023 End: 12-15-2024 CBC panel - Blood by Automated count CBC Lab Routine Routine adult health maintenance Expected: 12/16/2023 (Approximate), Expires: 12/15/2024 [facility] Comment on above: Expected: 12/16/2023 (Approximate), Expi res: 12/15/2024 Start: 12-16-2023 End: 12-15-2024 Comprehensive metabolic 1998 panel - Serum or Plasma Comprehensive metabolic panel Lab Routine Routine adult health maintenance Expected: 12/16/2023 (Approximate), Expires: 12/15/2024 [facility] Comment on above: Expected: 12/16/2023 (Approximate), Expi res: 12/15/2024 Start: 12-16-2023 End: 12-15-2024 Lipid 1996 panel - Serum or Plasma Lipid panel Lab Routine Routine adult health maintenance Expected: 12/16/2023 (Approximate), Expires: 12/15/2024 [facility] Comment on above: Expected: 12/16/2023 (Approximate), Expi res: 12/15/2024 Start: 12-16-2023 End: 12-15-2024 Thyrotropin [Units/volume] in Serum or Plasma TSH Lab Routine Abnormal TSH Expected: 12/16/2023 (Approximate), Expires: 12/15/2024 [facility] Work Phone: Comment on above: Expected: 12/16/2023 (Approximate), Expi res: 12/15/2024 Start: 12-11-2023 Depression Screening Depression Screening [facility] Start: 12-01-2023 End: 11-30-2024 FL HYSTEROSALPINGOGRAM FL HYSTEROSALPINGOGRAM Imaging Routine Fertility testing Expected: 12/01/2023, Expires: 11/30/2024 [facility] Comment on above: Expected: 12/01/2023, Expires: Start: 10-13-2023 End: 10-13-2023 Patient encounter procedure [facility] Start: 01-29-2023 COVID-19 Vaccine () COVID-19 Vaccine () [facility] Start: 01-29-2023 Influenza vaccination [facility] Start: 12-10-2022 End: 12-10-2022 Patient encounter procedure 12/10/2022 Office Visit Family Medicine Donita Garcia MD [address] [place] [address] [facility] Start: 12-10-2022 End: 12-11-2023 CBC panel - Blood by Automated count CBC Lab Routine Routine adult health maintenance Expected: 12/10/2022 (Approximate), Expires: 12/11/2023 [facility] Comment on above: Expected: 12/10/2022 (Approximate), Expi res: 12/11/2023 Start: 12-10-2022 End: 12-11-2023 Comprehensive metabolic 1998 panel - Serum or Plasma Comprehensive metabolic panel Lab Routine Routine adult health maintenance Expected: 12/10/2022 (Approximate), Expires: 12/11/2023 [facility] Comment on above: Expected: 12/10/2022 (Approximate), Expi res: 12/11/2023 Start: 12-10-2022 End: 12-11-2023 Lipid 1996 panel - Serum or Plasma Lipid panel Lab Routine Routine adult health maintenance Expected: 12/10/2022 (Approximate), Expires: 12/11/2023 [facility] Work Phone: Comment on above: Expected: 12/10/2022 (Approximate), Expi res: 12/11/2023 Start: 07-17-2022 Cervical cancer screen Cervical cancer screen [place] Start: 02-28-2022 Influenza vaccination [facility] Vaccine (#[facility] Start: 08-02-2020 End: 08-02-2020 Office Visit 08/02/2020 Office Visit [place] [address] [place] [address] [phone] [facility] Start: 07-24-2020 End: 07-24-2020 Office Visit 07/24/2020 Office Visit Obstetrics and Gynecology Mansi Wong MD [address], [address] [place] [address] [phone] [facility] [place] ADVICE LINE RN Start: 11-15-2019 End: 11-15-2019 Office Visit 11/15/2019 Office Visit Dermatology Lilly Vivas PA-C [address] [place] [address] [phone] [facility] Start: 2017 HPV Vaccine (optional start 27-45 years) HPV Vaccine (optional start 27-45 years) [facility] Start: 05-18-2017 Screening for malignant neoplasm of cervix Pap Smear [facility] Start: 2009 Hepatitis A (HAV) Vaccine (optional start 19+ years) Hepatitis A (HAV) Vaccine (optional start 19+ years) [facility] Start: 2009 Hepatitis B vaccination Hepatitis B (HBV) Vaccine (1 of 3 - 19+ 3-dose series) [facility] Start: 2009 Hepatitis B Vaccines (1 of 3 - 19+ 3-dose series) Hepatitis B Vaccines (1 of 3 - 19+ 3-dose series) [facility] Start: 2008 Hepatitis C screening Hepatitis C Antibody [facility] Start: 2005 HIV screen HIV screen [place], [place] Start: 2003 Varicella vaccination Varicella Vaccines (1 of 2 - 13+ 2-dose series) [facility] Start: 2002 Depression Screening Depression Screening [facility] Start: 1991 MMR Vaccines (1 of 1 - Standard series) MMR Vaccines (1 of 1 - Standard series) [facility] Start: 1991 Varicella vaccination Varicella Vaccines (1 of 2 - 2-dose childhood series) [facility] Start: 01-25-1991 COVID-19 Vaccine (#1) COVID-19 Vaccine (#1) [facility] Start: 01-25-1991 Examination of skin Derm Melanoma Skin Check [facility] Start: 1990 Hepatitis B Vaccines (1 of 3 - 3-dose series) Hepatitis B Vaccines (1 of 3 - 3-dose series) [facility] Alanine aminotransfe rase [Enzymatic activity/volume] in Serum or Plasma [facility] Albumin [Mass/volume ] in Serum or Plasma [facility] Alkaline phosphatase [Enzymatic activity/volume] in Serum or Plasma [facility] Anion gap in Serum o r Plasma [facility] Bilirubin, total measurement [facility] BUN/Creatinine ratio [facility] Calcium [Mass/volume ] in Serum or Plasma [facility] Carbon dioxide, tota l [Moles/volume] in Central venous blood [facility] Cholesterol [Mass/vo lume] in Serum or Plasma [facility] Cholesterol in HDL [Mass/volume] in Serum or Plasma [facility] Creatinine [Mass/vol ume] in Serum or Plasma [facility] Cytology Cervical or vaginal smear or scraping study Pap Smear Pathology and Cytology Routine Screening for cervical cancer Ordered: 12/01/2023 [facility] Work Phone: Comment on above: Ordered: 12/01/2023 Erythrocyte mean corpuscular volume determination [facility] Glucose [Mass/volume ] in Serum or Plasma [facility] Hematocrit [Volume Fraction] of Blood [facility] Hemoglobin [Mass/vol ume] in Blood [facility] Leukocytes [#/volume ] in Blood [facility] Low density lipoprot ein cholesterol measurement [facility] Mean corpuscular hemoglobin concentration determination [facility] Mean corpuscular hemoglobin determination [facility] Measurement of renal function [facility] Neutrophil count [facility] Neutrophil percent differential count [facility] Platelets [#/volume] in Blood [facility] Potassium measurement [facility] Red blood cell count [facility] Red cell distributio n width determination [facility] Serum chloride measurement [facility] Sodium measurement [facility] Total cholesterol:HD L ratio measurement [facility] Total protein measurement [facility] Triglycerides measurement [facility] Urea nitrogen [Mass/volume] in Serum or Plasma [facility] US Thyroid gland [facility] VLDL cholesterol measurement [facility] Immunizations Immunization Date Immunization Notes Care Provider Asa gomez 05-26-2019 influenza virus vacc ine, unspecified formulation HemalathaBlizuu [facility] 01-03-2014 tetanus toxoid, redu vipin diphtheria toxoid, and acellular pertussis vaccine, adsorbed [facility] [place] Payers Date Payer Category Payer Unknown [employer] [address] xxxxxxxxxxxx 2019-Present [phone] [address] [place] [address] xxxxxxxxxxxx [id number] 2019 Unknown [id number] 2015 Unknown 1990 Unknown [id number] Unknown [id number] Unknown [id number] Social History Date Type Detail Facility Start: 08-05-2019 End: 01-02-2025 Tobacco smoking status NHIS Never smoker [facility] Start: 08-05-2019 Alcohol intake 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 non-dr signal engineer of alcohol (finding) [place] Start: 08-03-2019 History SDOH Physica l Activity DPW 4 [place] Start: 08-03-2019 History SDOH Physica l Activity MPS 6 [place] Start: 08-03-2019 History SDOH Stress 3 [place] Start: 08-03-2019 History SDOH Financial 5 [place] Start: 08-03-2019 History SDOH Food Worry 1 [place] Start: 08-03-2019 History SDOH Transpo rt Med 2 [place] Start: 08-03-2019 Alcohol Comment about 1 time p er month - 1-2 times per month [place] Start: 1990 Sex Assigned At Not on file [place] Start: 07-10-2015 Alcohol intake Current drinke r of alcohol (finding) [facility] Start: 05-18-2014 Alcohol Comment a few times per [facility] Start: 09-30-2022 End: 12-16-2023 Alcohol intake Ex-drinker (finding) [facility] Start: 09-20-2022 End: 12-10-2022 Exposure to SARS-CoV-2 (event) Not sure [facility] Start: 12-10-2022 Tobacco use and exposure Smokeless tobacco non-user [facility] Start: 10-07-2016 End: 12-10-2022 History of Social function [facility] Start: 10-07-2016 End: 12-10-2022 Humiliation, Afraid, Rape, and Kick questionnaire [HARK] [facility] Within the last year , have you been afraid of your partner or ex-partner? Patient refused [facility] Are you now , , , , never or living with a partner? [facility] How often to you hav e a drink containing alcohol? Monthly or less [facility] How many standard drinks containing alcohol do you have on a typical day? 1 or 2 [facility] How often do you hav e 6 or more drinks on 1 occasion? Never [facility] How hard is it for y ou to pay for the very basics like food, housing, medical care, and heating Not very hard [facility] Do you feel stress - tense, restless, nervous, or anxious, or unable to sleep at night because your mind is troubled all the time - these days [OSQ] Only a little [facility] (I/We) worried wheth er (my/our) food would run out before (I/we) got money to buy more. Never true [facility] In the past 12 month s, was there a time when you were not able to pay the mortgage or rent on time? No [facility] Start: 09-16-2022 Gender identity Identifies as female gender (finding) [facility] Start: 07-10-2015 Details of drug misu se behavior Does not misuse drugs (situation) [facility] Start: 07-10-2015 History of sexual behavior Currently not sexually active [facility] Start: 12-18-2013 Sex Female (finding) [facility] Start: 1990 Sex Assigned At Female [facility] Sexual Orientation Heterosexual (finding) [facility] NEGATED: Highlighted rowStart: NINF History of tobacco use Passive smoker [facility] Clinical Notes 09-30-2022 to 08-08-2024 Telephone Encounter - Josselyn Le 01/06/2024 4:41 PM EDTTelephone Encounter - Josselyn Liunaomi - 01/06/2024 4:41 PM EDTTelephone Encounter - Brenda Joseph - 01/03/2024 12:28 PM EDT Note Date & Type Note Facility 01-06-2024 Note HSG Referral Confirm ed Received via [facility]ax. [facility] 01-06-2024 Telephone encount er Note HSG Referral Confirmed Received via [employer]ax. [facility] 01-06-2024 Miscellaneous Notes Formattin g of this note might be different from the original. HSG Referral Confirmed Received via RightFax. Name of caller: Regina Contact phone number: [phone] Relationship to Patient: patient Provider: Dr. Jannet Garcia Practice: [facility] Chief Complaint/Reason for Call: Patient calling to schedule her [place] Hysterosalpingogram. Patient stated that the first day of cycle was on 01/01/24. Please advise. Best time of day caller can be reached: Any Patient advised that office/PCP has 24-48 business hours to return their call: No documented in this encounter [facility] 01-03-2024 Telephone encount er Note Name of caller: Regina Contact phone number: [phone] Relationship to Patient: patient Provider: Dr. Jannet Garcia Practice: [facility] Chief Complaint/Reason for Call: Patient calling to schedule her [place] Hysterosalpingogram. Patient stated that the first day of cycle was on 01/01/24. Please advise. Best time of day caller can be reached: Any Patient advised that office/PCP has 24-48 business hours to return their call: No [facility] 12-16-2023 Evaluation + Plan note Associated Problem(s): Hyperlipemia Chronic, unknown Check the labs Is trying to conceive Would not use a statin if high [facility] 12-16-2023 Evaluation + Plan note Associated Problem(s): Abnormal TSH Chronic, unknown Check the labs No longer going to endo [facility] 12-16-2023 Miscellaneous Notes Associate d Problem(s): Hyperlipemia Chronic, unknown Check the labs Is trying to conceive Would not use a statin if high Associated Problem(s): Abnormal TSH Chronic, unknown Check the labs No longer going to endo documented in this encounter [facility] 12-16-2023 History of Presen t illness Narrative Subjective Patient ID: Regina Sanabria is a 33 y.o. female who presents for Annual Exam (Patient here today for annual physical exam. No refills needed.). Saw the [facility]. Is going to have an HSPG. Trying to conceive. Is off the pill. They did not do labs. On no medicines. BP is good. Weight is good. Chart reivewed Review of Systems Constitutional: Negative for activity change and appetite change. Weights and rower, and walking Respiratory: Negative for chest tightness and shortness of breath. Cardiovascular: Negative for chest pain and leg swelling. Gastrointestinal: Positive for constipation. Negative for abdominal pain and blood in stool. Genitourinary: Negative for difficulty urinating, menstrual problem and vaginal discharge. Less flow with menses Objective Physical Exam Vitals and nursing note reviewed. Constitutional: General: She is not in acute distress. Appearance: She is not ill-appearing or toxic-appearing. HENT: Right Ear: Tympanic membrane normal. Left Ear: Tympanic membrane normal. Nose: Nose normal. Mouth/Throat: Pharynx: No oropharyngeal exudate or posterior oropharyngeal erythema. Eyes: General: No scleral icterus. Conjunctiva/sclera: Conjunctivae normal. Pupils: Pupils are equal, round, and reactive to light. Neck: Vascular: No carotid bruit. Cardiovascular: Rate and Rhythm: Normal rate and regular rhythm. Heart sounds: Normal heart sounds. No murmur heard. Pulmonary: Effort: Pulmonary effort is normal. No respiratory distress. Breath sounds: Normal breath sounds. Abdominal: General: Bowel sounds are normal. There is no distension. Tenderness: There is no abdominal tenderness. There is no right CVA tenderness or left CVA tenderness. Musculoskeletal: Cervical back: Neck supple. Lymphadenopathy: Cervical: No cervical adenopathy. Skin: General: Skin is warm and dry. Capillary Refill: Capillary refill takes less than 2 seconds. Coloration: Skin is not jaundiced. Neurological: Mental Status: She is alert and oriented to person, place, and time. Cranial Nerves: No cranial nerve deficit. Psychiatric: Thought Content: Thought content normal. Assessment/Plan Problem List Items Addressed This Visit Abnormal TSH Chronic, unknown Check the labs No longer going to endo Relevant Orders TSH Hyperlipemia Chronic, unknown Check the labs Is trying to conceive Would not use a statin if high Other Visit Diagnoses Routine adult health maintenance - Primary Relevant Orders Lipid panel Comprehensive metabolic panel CBC documented in this encounter [facility] 12-01-2023 History of Presen t illness Narrative Regina Sanabria 12/01/2023 33 y.o. Primary Care Physician: Doniat Garcia MD Chief Complaint Patient presents with Gynecologic Exam HPI : Regina Sanabria is a 33 y.o. female here for annual exam. Gynecologic History: Patient's last menstrual period was 11/10/2023. Menses are regular. Menses occur every regular every 28-30 days. Flow is 3 days long, moderate flow Intermenstrual bleeding: no Dysmenorrhea:moderate, occurring throughout menses and getting worse over the years Sexually Active: Yes Dyspareunia: No Contraception: no method Preventative Health Testing: Date of Last Pap Smear: neg pap and HPV in 08/2021 Abnormal Pap Smear History: ASCUS with +other HPV in 2020 with neg colpo OB History Para Term AB Living 0 0 0 0 0 0 SAB IAB Ectopic Multiple Live Births 0 0 0 0 0 Past Medical History: Diagnosis Date Abnormal Pap smear of cervix 07/2020 ASCUS +other HPV, neg colpo Hyperlipemia History reviewed. No pertinent surgical history. Family History Problem Relation Name Age of Onset Cervical cancer Sister 31 Hypertension Father Father Arthritis Father Father Other ([id number]) Mother Mother hysterectomy- benign tumor Hypothyroidism Mother Mother Hypertension Mother Mother Breast cancer Maternal Great-Grandmother Hyperthyroidism Maternal Grandmother Cancer Maternal Grandfather Grandpa Melanoma COPD Maternal Grandfather Grandpa Thyroid cancer Neg Hx MEDICATIONS: Current Outpatient Medications Medication Sig Dispense Refill MULTIPLE VITAMINS PO Take 1 tablet by mouth in the morning. No current facility-administered medications for this visit. ALLERGIES: Allergies as of 12/01/2023 - Reviewed 12/01/2023 Allergen Reaction Noted Penicillins Anaphylaxis and Hives 01/03/2014 Shellfish-derived products Anaphylaxis, Hives, Itching, Rash, and Swelling 08/03/2019 REVIEW OF SYSTEMS: CONSTIUTIONAL: No weight change or fatigue. No fever or chills. No changes in appetite. CV: No chest pain, palpitations, or syncope. RESPIRATORY: No SOB, cough, or wheezing. BREAST: No breast abnormalities or lumps. GI: No nausea, vomiting, diarrhea, constipation, bloating or bowel changes. No blood or mucous with bowel movements or melena. : No dysuria, frequency, hesitancy, urgency. No urinary incontinence. No vaginal discharge, odor, or itch. No dyspareunia. NEURO: No weakness or sensory changes MUSCULOSKELETAL: No back pain or arthralgias. HEME and LYMPH : No lymphoma or abnormal bleeding history PHYSICAL EXAM: Vitals: 12/01/23 1522 BP: 126/84 Weight: 212 lb (96.2 kg) Height: 5' 8 (1.727 m) Body mass index is 32.23 kg/m . 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 nontender BLADDER: non tender PELVIC SUPPORT DEFECTS: normal support of vagina, uterus, and bladder ANUS/PERINEUM: no hemorrhoids, masses or warts noted ASSESSMENT/PLAN: Regina was seen today for gynecologic exam. Diagnoses and all orders for this visit: Encounter for gynecological examination with abnormal finding (Primary) Screening for cervical cancer - Pap Smear Fertility testing - FL HYSTEROSALPINGOGRAM; Future Follow up in about 1 year (around 11/30/2024) for annual. Discussed fertility testing, since greater then a year of trying and she is ovulation and timing intercourse without success, I would recommend HSG to look at tubal patency and semen analysis. Kit for semen analysis given to patient today and she will call the office on first day of period to schedule HSG appropriately in the cycle after bleeding, but before ovulation. Discussed pap guidelines and routine gynecologic preventative care/screening. Self breast exam discussed. Weight management through healthy diet and regular exercise reviewed. Advised use of MVI and vit D supplementation, calcium through diet if able. Routine health maintenance per patient's PCP as well. Jannet Garcia M.D. 12/01/2023 at 4:11 PM (Electronically Signed) documented in this encounter [facility] 05-13-2023 History of Presen t illness Narrative Subjective: Patient: Regina Sanabria is a 32 y.o. female Patient presents urgent care today with concerns for sore throat x 3 days and right ear pain today. Patient has been taking DayQuil and cough drops at home with little relief. Patient denies fever, chills, nausea, vomiting, diarrhea, shortness of breath, and chest pain. Patient able to speak in full complete sentences today in office and is able to manage secretions appropriately. Review of Systems Constitutional: Negative for chills, fatigue and fever. HENT: Positive for sore throat. Negative for congestion, ear discharge, ear pain, rhinorrhea, sinus pressure, sinus pain and trouble swallowing. Respiratory: Negative for cough, chest tightness, shortness of breath and wheezing. Cardiovascular: Negative for chest pain and palpitations. Gastrointestinal: Negative for diarrhea, nausea and vomiting. Neurological: Negative for dizziness, syncope, weakness, light-headedness and headaches. Allergies Allergen Reactions Penicillins Anaphylaxis and Hives Other reaction(s): Unknown Shellfish-Derived Products Anaphylaxis, Hives, Itching, Rash and Swelling Current Outpatient Medications on File Prior to Visit Medication Sig Dispense Refill MULTIPLE VITAMINS PO Take 1 tablet by mouth in the morning. No current facility-administered medications on file prior to visit. Past Medical History: Diagnosis Date Abnormal Pap smear of cervix 07/2020 ASCUS +other HPV, neg colpo Hyperlipemia Social History Tobacco Use Smoking status: Never Passive exposure: Never Smokeless tobacco: Never Substance Use Topics Alcohol use: Not Currently Objective: BP (!) 149/74 (BP Location: Right arm) Pulse 76 Temp 36.3 C (97.3 F) (Temporal) Ht 5' 8 (1.727 m) Wt 208 lb (94.3 kg) LMP 04/27/2023 SpO2 100% BMI 31.63 kg/m Physical Exam Vitals and nursing note reviewed. Constitutional: General: She is not in acute distress. Appearance: Normal appearance. She is normal weight. She is not ill-appearing or toxic-appearing. HENT: Right Ear: A middle ear effusion is present. Tympanic membrane is not erythematous or bulging. Left Ear: A middle ear effusion is present. Tympanic membrane is not erythematous or bulging. Nose: Nose normal. Right Sinus: No maxillary sinus tenderness or frontal sinus tenderness. Left Sinus: No maxillary sinus tenderness or frontal sinus tenderness. Mouth/Throat: Mouth: Mucous membranes are moist. Pharynx: Oropharynx is clear. Uvula midline. Posterior oropharyngeal erythema present. No oropharyngeal exudate. Tonsils: No tonsillar exudate or tonsillar abscesses. 2+ on the right. 2+ on the left. Cardiovascular: Rate and Rhythm: Normal rate and regular rhythm. Pulmonary: Effort: Pulmonary effort is normal. Breath sounds: Normal breath sounds. Musculoskeletal: General: Normal range of motion. Skin: General: Skin is warm and dry. Neurological: General: No focal deficit present. Mental Status: She is alert and oriented to person, place, and time. Mental status is at baseline. Psychiatric: Mood and Affect: Mood normal. Behavior: Behavior normal. Behavior is cooperative. Thought Content: Thought content normal. Judgment: Judgment normal. Assessment 1. Viral pharyngitis 2. Sore throat 3. Middle ear effusion, bilateral Plan Diagnoses and all orders for this visit: Viral pharyngitis - dexAMETHasone (Decadron) injection 10 mg Sore throat - AMB POC STREP GO A DIRECT, DNA PROBE Middle ear effusion, bilateral - fluticasone (Flonase Allergy Relief) 50 MCG/ACT nasal spray; Administer 1 spray into each nostril daily. Shake gently. Before first use, prime pump. After use, clean tip and replace cap. Due to patient's symptoms and clinical evaluation a strep culture was performed in office. Strep culture negative. Patient given Decadron in office for sore throat relief. Patient prescribed Flonase from bilateral middle ear effusions. Educated patient on medications prescribed today in office and education provided in AVS. Recommended patient rest, increase p.o. fluid intake, utilize warm salt water gargles and throat lozenges at home for sore throat relief. Educated patient to follow-up with PCP for worsening or persistent symptoms. Patient understands and agreeable to treatment plan. Desire Christy NP 05/13/23 5:44 PM If symptoms do not improve, worsen, or new symptoms develop, see PCP for further evaluation. Administrations This Visit dexAMETHasone (Decadron) injection 10 mg Admin Date 05/13/2023 Action Given Dose 10 mg Route Oral Documented By An Valles [place] [facility] [id number] Lot [id number] Exp 05/30/24 documented in this encounter [facility] 12-10-2022 History of Presen t illness Narrative Subjective Patient ID: Regina Sanabria is a 32 y.o. female who presents for Annual Exam (Pt is not fasting - brought in work/insurance form/No questions or concerns when asked.). Went off the BCP. Would like to get . Having menses. Has gained 6# since last year. Lots of activity. Watching choices and portions. Drinks water. Cut out the alcohol. On no medicine Review of Systems Constitutional: Positive for activity change and appetite change. Negative for unexpected weight change. Respiratory: Negative for chest tightness, shortness of breath and wheezing. Cardiovascular: Negative for chest pain. Gastrointestinal: Negative for abdominal distention, blood in stool, constipation and diarrhea. Genitourinary: Negative for difficulty urinating. Objective Physical Exam Vitals and nursing note reviewed. Constitutional: General: She is not in acute distress. Appearance: She is not ill-appearing or toxic-appearing. HENT: Right Ear: Tympanic membrane normal. Left Ear: Tympanic membrane normal. Nose: Nose normal. Mouth/Throat: Pharynx: No oropharyngeal exudate or posterior oropharyngeal erythema. Eyes: General: No scleral icterus. Conjunctiva/sclera: Conjunctivae normal. Pupils: Pupils are equal, round, and reactive to light. Neck: Vascular: No carotid bruit. Cardiovascular: Rate and Rhythm: Normal rate and regular rhythm. Heart sounds: Normal heart sounds. No murmur heard. Pulmonary: Effort: Pulmonary effort is normal. No respiratory distress. Breath sounds: Normal breath sounds. Abdominal: General: Bowel sounds are normal. There is no distension. Tenderness: There is no abdominal tenderness. There is no right CVA tenderness or left CVA tenderness. Musculoskeletal: Cervical back: Neck supple. Lymphadenopathy: Cervical: No cervical adenopathy. Skin: General: Skin is warm and dry. Capillary Refill: Capillary refill takes less than 2 seconds. Coloration: Skin is not jaundiced. Neurological: Mental Status: She is alert and oriented to person, place, and time. Cranial Nerves: No cranial nerve deficit. Psychiatric: Thought Content: Thought content normal. Assessment/Plan Problem List Items Addressed This Visit Other Hyperlipemia Chronic, stable The HDL has been high, which is not a problem Other Visit Diagnoses Routine adult health maintenance - Primary Healthy, stable Will do the Be well form Relevant Orders Lipid panel Comprehensive metabolic panel CBC documented in this encounter [facility] 09-30-2022 History of Presen t illness Narrative Regina Sanabria 09/30/2022 32 y.o. Primary Care Physician: Donita Garcia MD Chief Complaint Patient presents with Gynecologic Exam Trying for a baby HPI : Regina Sanabria is a 32 y.o. female here for annual exam. Gynecologic History: Patient's last menstrual period was 09/18/2022. Menses are regular. Menses occur every regular every 28-30 days. Flow is moderate, Intermenstrual bleeding: no Dysmenorrhea:none Sexually Active: Yes Dyspareunia: No Contraception: no method, been trying to conceive for past 6 months Preventative Health Testing: Date of Last Pap Smear: neg pap and HPV in 2021 Abnormal Pap Smear History: ASCUS with +other HPV in 2020, neg colpo 2020 OB History Para Term AB Living 0 0 0 0 0 0 SAB IAB Ectopic Multiple Live Births 0 0 0 0 0 Past Medical History: Diagnosis Date Abnormal Pap smear of cervix 07/2020 ASCUS +other HPV, neg colpo Hyperlipemia History reviewed. No pertinent surgical history. Family History Problem Relation Name Age of Onset Cervical cancer Sister 31.00 Hypertension Father Thyroid cancer Neg Hx Other ([id number]) Mother hysterectomy- benign tumor Hypothyroidism Mother Breast cancer Maternal Great-Grandmother Hyperthyroidism Maternal Grandmother Cancer Maternal Grandfather Melanoma Social History Socioeconomic History Marital status: Spouse name: Not on file Number of children: Not on file Years of education: Not on file Highest education level: Not on file Occupational History Not on file Tobacco Use Smoking status: Never Smokeless tobacco: Never Vaping Use Vaping Use: Never used Substance and Sexual Activity Alcohol use: Not Currently Drug use: Never Sexual activity: Yes Other Topics Concern Not on file Social History Narrative Lives with Social Determinants of Health Financial Resource Strain: Not on file Food Insecurity: Not on file Transportation Needs: Not on file Physical Activity: Not on file Stress: Not on file Social Connections: Not on file Intimate Partner Violence: Not on file Housing Stability: Not on file MEDICATIONS: No current outpatient medications on file. No current facility-administered medications for this visit. ALLERGIES: Allergies as of 09/30/2022 - Reviewed 09/30/2022 Allergen Reaction Noted Penicillins Anaphylaxis and Hives 01/03/2014 Shellfish-derived products Anaphylaxis, Hives, Itching, Rash, and Swelling 08/03/2019 REVIEW OF SYSTEMS: CONSTIUTIONAL: No weight change or fatigue. No fever or chills. No changes in appetite. CV: No chest pain, palpitations, or syncope. RESPIRATORY: No SOB, cough, or wheezing. BREAST: No breast abnormalities or lumps. GI: No nausea, vomiting, diarrhea, constipation, bloating or bowel changes. No blood or mucous with bowel movements or melena. : No dysuria, frequency, hesitancy, urgency. No urinary incontinence. No vaginal discharge, odor, or itch. No dyspareunia. NEURO: No weakness or sensory changes MUSCULOSKELETAL: No back pain or arthralgias. HEME and LYMPH : No lymphoma or abnormal bleeding history PHYSICAL EXAM: Vitals: 09/30/22 1222 BP: 110/62 Weight: 194 lb (88 kg) Height: 5' 8 (1.727 m) Body mass index is 29.5 kg/m . 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 nontender BLADDER: non tender PELVIC SUPPORT DEFECTS: normal support of vagina, uterus, and bladder ANUS/PERINEUM: no hemorrhoids, masses or warts noted ASSESSMENT/PLAN: Regina was seen today for gynecologic exam. Diagnoses and all orders for this visit: Encounter for gynecological examination without abnormal finding (Primary) Follow up in about 1 year (around 10/01/2023) for annual. Discussed OTC OPK to help with timing, likely ovulating given regular periods, if not getting positive results or if not after 12 months, call office for consultation Discussed pap guidelines and routine gynecologic preventative care/screening. Self breast exam discussed. Weight management through healthy diet and regular exercise reviewed. Advised use of MVI and vit D supplementation, calcium through diet if able. Routine health maintenance per patient's PCP as well. Jannet Garcia M.D. 09/30/2022 at 12:47 PM (Electronically Signed) [facility] Diagnosis Encounter for gynecological examination without abnormal finding- Primary [facility]* Diagnosis Routine adult health maintenance- Primary Pure hypercholesterolemia [facility]* Diagnosis Viral pharyngitis- Primary Acute pharyngitis Sore throat Acute pharyngitis Middle ear effusion, bilateral [facility]* Diagnosis Encounter for gynecological examination with abnormal finding- Primary Screening for cervical cancer Screening for malignant neoplasm of the cervix Fertility testing [facility]* Diagnosis Routine adult health maintenance- Primary Pure hypercholesterolemia Abnormal TSH [facility]* Diagnosis Onset Date Resolution Status Admit Date Screening for cardiovascular condition noneactive January 02, 2025 1:24pm Establishing care with new doctor, encounter for noneactive December 1:24pm [facility] Work Phone: Instructions* Attachments The following attachments cannot be sent through Care Everywhere. * Fluticasone (Nasal), ADULT (Mauritanian) * Sore Throat, Adult ED (Mauritanian) documented in [facility] encounterSC[facility] HospitalReason for referral (narrative)No reason for referral information availableChonc Pediatric Hospital Work Phone: Summary Purpose Family History Relationship Condition Age at Onset Recorded Date/T rito mother Hypertension Unknown Hormone deficiency Unknown grandfather Malignant melanoma Unknown Chronic obstructive pulmonary disease Unk nown grandmother Hormone deficiency Unknown Disorder of thyroid Unknown Endometriosis Unknown grandmother Mental disorder Unknown Malignant neoplasm of vulva Unknown Advance Directives Documents on File Type Date Recorded 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 Advance Directives and Living Will Power of Packer Insulation Reason for Referral Status Reason Specialty Diagnoses / Procedures Referred By Contact Referred To Contact Authorized Radiology Diagnoses Thyromegaly Procedures US Thyroid Hemalatha Nieves MD [address] [place] [address] Assessments Diagnosis Thyromegaly Goiter, unspecified Routine screening for STI (sexually transmitted infection) Screening examination for venereal disease Screening for lipid disorders Screening for diabetes mellitus Wellness examination Need for hepatitis C screening test Special screening examination for other specified viral diseases Need for hepatitis B screening test Screening for HIV (human immunodeficiency virus) Special screening examination for other specified viral diseases Other fatigue Chief Complaint and Reason for Visit Chief Complaint Admit Date 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 SENT January 02, 2025 1: 24pm Reason for Visit Admit Date Screening for cardiovascular condition A ugust 2024 1:24pm Establishing care with new doctortino for January 02, 2025 1:24pm Additional Source Comments INFORMATION SOURCE (unrecogn ized section and content) DATE CREATED AUTHOR 11/22/2017 [facility] DATE CREATED AUTHOR AUTHOR'S ORGANIZ ATION 12/16/2019 [facility] DATE CREATED AUTHOR AUTHOR'S ORGANIZ ATION 07/04/2021 [employer] DATE CREATED AUTHOR AUTHOR'S ORGANIZ ATION 01/22/2024 [facility] DATE CREATED AUTHOR AUTHOR'S ORGANIZ ATION 12/13/2024 [facility] Care Teams (unrecognized sec tion and content) 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 Start Date End Date Joanne Robison MD [address] [place] [address] PCP - General Internal Medicine 01/04/14 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 Start Date End Date Donita Garcia MD [address] [place] [address] PCP - General 02/13/22 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 Start Date End Date Donita Garcia MD [facility] [place] [address] PCP - General 02/13/22 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 Start Date End Date Joanne Robison MD [facility] [place] [address] PCP - General Internal Medicine 01/04/14 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 Start Date End Date Donita Garcia MD [facility] [place] [address] PCP - General 02/13/22 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 Start Date End Date Donita Garcia MD [facility] [place] [address] PCP - General 02/13/22 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 Start Date End Date Donita Garcia MD [facility] [place] [address] PCP - General 02/13/22 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 Start Date End Date Donita Garcia MD [facility] [place] [address] [place] [address] PCP - General 02/13/22 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 Start Date End Date Joanne Robison MD [facility] [place] [address] PCP - General Internal Medicine 01/04/14 Team Status: Active Member Role/Relationship Status Dates Dr. Aljeandra Lovelace MD Primary Care Provider Active Team Status: Inactive Member Role/Relationship Status Dates Dr. Alejandra Lovelace MD Attending Provider Active Start: January 02, 2025 End: January 02, 2025 Team Status: Active Member Role/Relationship Status Dates Dr. Alejandra Lovelace MD Primary Care Provider Active Start: January 02, 2025 Dr. Alejandra Lovelace MD Attending Provider Active Start: January 02, 2025 Dr. Alejandra Lovelace MD Referring Provider Active Start: January 02, 2025 Reason for Visit (unrecogniz ed section and content) Reason Comments Gynecologic Exam Trying for a baby Reason Comments Annual Exam Pt is not fasting - brought in work/insurance formNo questions or concerns when asked. Reason Comments Sore Throat X 4 days, nasal clifton estion, right ear pain with some swelling-taking cold medicine Reason Comments Gynecologic Exam Reason Comments Annual Exam Patient here today f or annual physical exam. No refills needed. Reason Onset Date Comments Orders 01/03/2024 Patient needs to schedule [place] Hysterosalpingogram. Goals (unrecognized section and content) Goals may be documented in a n alternate section FOR RECORDS PERTAINING TO PATIENTS WHO ARE OR HAVE BEEN ENROLLED IN A CHEMICAL DEPENDENCY/SUBSTANCEABUSE PROGRAM, SOME INFORMATION MAY BE OMITTED. This clinical summary was aggregated from multiple sources. Caution should be exercised in using it in the provision of clinical care. This summary normalizes information from multiple sources, and as a consequence, information in this document may materially change the coding, format and clinical context of patient data. In addition, data may be omitted in some cases. CLINICAL DECISIONS SHOULD BE BASED ON THE PRIMARY CLINICAL RECORDS. [employer] provides no warranty or guarantee of the accuracy or completeness of information in this document.
== END | disposition home or self-care (01) ==
LOC: US 10:01
PROVIDERS: PCP Internal Medicine; Referring Provider Internal Medicine; Visit Provider Internal Medicine
DX: E04.1 Nontoxic single thyroid nodule (principal)
CPT/HCPCS: 76536

== ENCOUNTER → 2025-01-19 | Outpatient (CLI) | payer OTHER, SELFPAY | END | disposition home or self-care (01) | PROVIDERS: PCP Internal Medicine; Visit Provider Nurse Practitioner Women's Health | DX: N97.9 Female infertility, unspecified (principal) | CPT/HCPCS: 36415; 82627; 84146; 84402; 84443; 82626 ==